=== PATIENT | female | born 1955 | race Caucasian/White ===

== ENCOUNTER 2017-07-03 11:43 | Day surgery (SDC) | payer BC ==
[~2017-07-03] VITALS: Ht 154.9 cm; Wt 55.0 kg
[2017-07-03] VITALS (14 sets, daily range): BP systolic 126–193; BP diastolic 59–89; PULSE 66–78; RESP 13–21; Ht 154.9 cm; Wt 55.0 kg
[~2017-07-03 11:43] MED LIST: ATOR10TA65 PO; DESFLURANE 15 MIN ONE; LANT3I SC; LIDOCAINE 2% (SDV) 5 ML INJ ONE; LISI40TA9 PO; METF-480 PO; METF1000 PO; NOVO3I SC
[2017-07-03] MEDS ORDERED: METF1000 PO (12:24)
[2017-07-03] MEDS ORDERED: GLIP5TAB13 PO (12:25)
[2017-07-03] MEDS ORDERED: SIMV20TA PO (12:25)
[2017-07-03] MEDS ORDERED: CALC1TAB79 PO (12:26)
[2017-07-03] MEDS ORDERED: LISI-313 PO (12:27)
[2017-07-03] MEDS ORDERED: ASPI-664 PO (12:29)
[2017-07-03] MEDS ORDERED: SOD CHLORIDE 0.9% 1,000 ML IV SCH (12:30)
[2017-07-03] MEDS ORDERED: CEFAZOLIN 2 GM/50 ML (PMX) 50 ML IVPB ONE (12:30)
[2017-07-03 13:21] LABS: BASOPHILS % 0.2 % (0.0-2.0); EOSINOPHILS % 0.3 % (0.0-7.0); HEMATOCRIT 32.2 % (37.0-47.0); HEMOGLOBIN 10.9 g/dl (12.0-16.0); LYMPHOCYTES # 1.9 10^3/ul (0.8-2.9); LYMPHOCYTES % 17.6 % (15.0-51.0); MEAN CORPUSCULAR HEMOGLOBIN 30.4 pg (29.0-33.0); MEAN CORPUSCULAR HGB CONC 33.9 g/dl (32.0-37.0); MEAN CORPUSCULAR VOLUME 89.9 fl (82.0-101.0); MEAN PLATELET VOLUME 10.5 fl (7.4-10.4); MONOCYTE # 0.8 10^3/ul (0.3-0.9); MONOCYTES % 7.1 % (0.0-11.0); NEUTROPHILS % 74.4 % (39.0-77.0); PLATELET COUNT 321 10^3/UL (140-415); RED BLOOD COUNT 3.58 10^6/ul (4.20-5.40); RED CELL DISTRIBUTION WIDTH 12.7 % (11.5-14.5); WHITE BLOOD COUNT 10.9 10^3/ul (4.8-10.8)
[2017-07-03] MEDS ORDERED: INSULIN ASPART [NOVOLOG] 3 ML PEN SC SCH (13:30)
[2017-07-03 13:33] LABS: INR 1.01; PROTIME 13.3 Sec (12.2-14.2)
[2017-07-03 13:34] LABS: PARTIAL THROMBOPLASTIN TIME 25.3 Sec (25.0-35.0)
--- NOTE | 2017-07-03 13:38 | RADRPT ---
PROCEDURE: XR Chest 1 View. CLINICAL INDICATION: Abnormal breath sounds, preop. TECHNIQUE: AP view of the chest was obtained. COMPARISON: December 23, [address] December 28 2014 FINDINGS: The cardiomediastinal silhouette is within normal limits. No consolidations are identified. No pneu mothorax is seen. Osseous structures are intact. IMPRESSION: No visualized active disease. RPTAT: AA .Polo Alan MD, Date Time Electronically viewed and signed by .Polo Alan MD, MD on 07/03/2017 13:38 .P/
[2017-07-03 13:42] LABS: BILIRUBIN,INDIRECT 0.5 mg/dl (0-1.1); BILIRUBIN,TOTAL 0.5 mg/dl (0.2-1.3); CALCIUM 9.5 mg/dl (8.4-10.2); CREATININE 0.63 mg/dl (0.44-1.00); POTASSIUM 3.6 mmol/L (3.5-5.1); TOTAL PROTEIN 8.1 g/dl (6.1-8.1)
[2017-07-03 13:55] LABS: ALBUMIN 4.2 g/dl (3.3-4.9); ALBUMIN/GLOBULIN RATIO 1.07
[2017-07-03] MEDS ORDERED: BUPIVACAINE 0.25% (MPF) 30 ML INJ ONE ×2 (14:37→14:45)
[2017-07-03] MEDS ORDERED: ONDANSETRON 4 MG INJ ONE (14:44)
[2017-07-03] MEDS ORDERED: PROPOFOL 20 ML ONE (14:44)
[2017-07-03] MEDS ORDERED: GLYCOPYRROLATE 0.4 MG INJ ONE (14:44)
[2017-07-03] MEDS ORDERED: ROCURONIUM 50 MG INJ ONE (14:44)
[2017-07-03] MEDS ORDERED: MIDAZOLAM 1 MG/ML 2 ML INJ ONE (14:44)
[2017-07-03] MEDS ORDERED: FENTAnyl 50 MCG/ML VIAL ONE (14:44)
[2017-07-03] MEDS ORDERED: CEFAZOLIN 1 GM INJ ONE (14:44)
[2017-07-03] MEDS ORDERED: NEOSTIGMINE 3 MG/3 ML SYRINGE ONE (14:44)
[2017-07-03] MEDS ORDERED: DEXAMETHASONE 4 MG/ML 1 ML INJ ONE (14:45)
[2017-07-03] MEDS ORDERED: PHENYLephrine (100 MCG/ML) 5ML SYG ONE (14:59)
--- NOTE | 2017-07-03 15:29 | OPR ---
Date/Time of Note Date/Time of Note DATE: 07/03/17 TIME: 15:26 Operative Report Procedure Date: Jul 03, 2017 Preoperative Diagnosis left back mass Postoperative Diagnosis same Operation Performed 1. excision of back mass 10 x 6 cm mass 10 cm incision 2. localized adjacent tissue transfer with the use of skin flaps 60 sq cm defect 3. therapeutic injection of subcutaneous marcaine Surgeon: Chente MENESES Anesthesia Type: general Estimated Blood Loss: 0 - 10 ml's Specimens left back mass Grafts/Implants: none Complications: no Indications This is a 61-year-old female with a large left back mass. She required surgical excision. Risks alternatives benefits and percent were discussed the patient. Patient's best understanding and consents to the operation. Procedure Description Patient taken to the OR and prepped and draped in usual sterile fashion. Surgical timeout was performed. IV antibiotics were given. Large elliptical incision is made with a 15 blade circumferentially around the left back mass. Dissection cautery was carried onto the deeper tissue layers. The mass is resected and blocked. A large tissue defect is created. Localized adjacent tissue transfer with these of skin flaps was performed. Large skin flaps are created in the lateral aspect of the wound. These are raised and advanced to the midline and closed with interrupted 2-0 Vicryl and interrupted 3-0 Vicryl. The skin is then closed with skin dayanara. The therapeutic subcutaneous Marcaine is injected all along the incision line. Dry dressings were applied. Chente MENESES Jul 03, 2017 15:29
[2017-07-03] MEDS ORDERED: HYDROCODONE/APAP (5/325) TAB PO ONE (15:30)
[2017-07-03] MEDS ORDERED: EPHEDrine SULFATE 50 MG/5 ML SYG IV PRN (15:30)
[2017-07-03] MEDS ORDERED: MEPERIDINE 25 MG INJ IV PRN (15:30)
[2017-07-03] MEDS ORDERED: HYDROmorphONE (0.2 MG/ML) 10ML SYG IV PRN ×3 (15:30)
[2017-07-03] MEDS ORDERED: hydrALAzine 20 MG INJ IV PRN (15:30)
[2017-07-03] MEDS ORDERED: OXYCODONE/ACETAMINOPHEN (5/325) TAB PO PRN ×2 (15:30)
[2017-07-03] MEDS ORDERED: IPRATROPIUM (NEB) 0.5 MG/2.5 ML AMP HHN PRN (15:30)
[2017-07-03] MEDS ORDERED: DIPHENHYDRAMINE 50 MG INJ IV PRN (15:30)
[2017-07-03] MEDS ORDERED: FENTAnyl 50 MCG/ML VIAL IV PRN ×3 (15:30)
[2017-07-03] MEDS ORDERED: ALBUTEROL 0.083% (NEB) 2.5 MG/3 ML AMP HHN PRN (15:30)
[2017-07-03] MEDS ORDERED: TRIMETHOBENZAMIDE 100 MG/ML VIAL IM PRN (15:30)
[2017-07-03] MEDS ORDERED: ONDANSETRON 4 MG INJ IV PRN (15:30)
[2017-07-03] MEDS ORDERED: LABETALOL HCL 20MG INJ IV PRN (15:30)
[2017-07-03] MEDS ORDERED: MIDAZOLAM 1 MG/ML 2 ML INJ IV PRN (15:30)
[2017-07-03] MEDS ORDERED: DEXTROSE 50% 50 ML SYRINGE IV PRN (16:00)
--- NOTE | 2017-07-05 17:09 | RADRPT ---
Vent Rate: 67 bpm RR Interval: 0 msec NV Interval: 140 msec QRS Duration: 76 msec QT Interval: 416 msec QTC Interval: 439 msec P-R-T [place]: 42 - 20 - 146 degrees Normal sinus rhythm Nonspecific T wave abnormality Abnormal ECG Electronically Signed By: Basil George [id number]
== END 2017-07-03 18:23 | disposition home or self-care (01) ==
LOC: SDS 11:43
PROVIDERS: ATTEND Surgery
DX: L72.0 Epidermal cyst (principal); L90.5 Scar conditions and fibrosis of skin; E11.9 Type 2 diabetes mellitus without complications; I10 Essential (primary) hypertension
CPT/HCPCS: 14301; 71010; 80053; 82962; 85025; 85610; 85730; 88307; 93005; J0360; J0690; J1100; J1815; J2250; J2370; J2405; J2710; J3010; Z7512; Z7610

== ENCOUNTER 2017-08-21 07:34 | Day surgery (SDC) | payer BC ==
[2017-08-21] VITALS (9 sets, daily range): BP systolic 132–162; BP diastolic 59–82; PULSE 64–72; RESP 15–22; Ht 154.9 cm; Wt 57.4 kg
[~2017-08-21] VITALS: Ht 154.9 cm; Wt 57.4 kg
[~2017-08-21 07:34] MED LIST changes: +ASPI-664 PO; -ATOR10TA65 PO; +CALC1TAB79 PO; +CARBACHOL 0.01% 1.5 ML OPH INJ ONE; -DESFLURANE 15 MIN ONE; +EPINEPHrine 1 MG INJ ONE; +GLIP5TAB13 PO; -LANT3I SC; +LIDOCAINE 1% (MPF) 10 ML INJ ONE; +LISI-313 PO; -LISI40TA9 PO; -METF-480 PO; -NOVO3I SC; +PHENYLephrine 10% 5 ML OPH ONE; +SIMV20TA PO; +TIMOLOL 0.5% 5 ML OPH ONE
[2017-08-21] MEDS ORDERED: PHENYLephrine 10% 5 ML OPH OPER SCH (08:00)
[2017-08-21] MEDS ORDERED: NEPAFENAC 0.1% 3 ML OPH OPER SCH (08:00)
[2017-08-21] MEDS ORDERED: CYCLOPENTOLATE 2% 2 ML OPH OPER SCH (08:00)
[2017-08-21] MEDS ORDERED: MOXIFLOXACIN 0.5% 3 ML OPH OPER SCH (08:00)
[2017-08-21] MEDS ORDERED: NA BICARBONATE 8.4% 50 ML SYG ONE (09:00)
[2017-08-21] MEDS ORDERED: SODIUM BICARBONATE (IV ADD) 50 ML ONE (09:01)
[2017-08-21] MEDS ORDERED: LIDOCAINE 1% (MPF) 5 ML VIAL INJ ONE (09:15)
[2017-08-21] MEDS ORDERED: PHENYLephrine 10% 5 ML OPH OPER ONE (09:15)
[2017-08-21] MEDS ORDERED: TETRACAINE 0.5% 4 ML OPH LEFT EYE ONE (09:15)
--- NOTE | 2017-08-21 09:33 | HPN ---
Date/Time of Note Date/Time of Note DATE: 08/21/17 TIME: 09:32 Interval H&P Admission Note Pt. seen H&P reviewed: No system changes FRANCES MONTOYA MD Aug 21, 2017 09:33
[2017-08-21] MEDS ORDERED: CARBACHOL 0.01% 1.5 ML OPH INJ IO ONE (10:05)
[2017-08-21] MEDS ORDERED: TIMOLOL 0.5% 5 ML OPH LEFT EYE ONE (10:05)
[2017-08-21] MEDS ORDERED: LIDOCAINE 2% (SDV) 5 ML INJ ONE (10:07)
[2017-08-21] MEDS ORDERED: PROPOFOL 20 ML ONE (10:07)
--- NOTE | 2017-08-21 10:22 | SIPON ---
Date/Time of Note Date/Time of Note DATE: 08/21/17 TIME: 10:19 Operative Report Preoperative Diagnosis cataract left eye Postoperative Diagnosis same Operation/Procedure Performed cataract extraction with lens implant Surgeon see signature line triage assistant none Anesthesia: MAC Estimated blood loss: none Transfusion Required none Specimen none Grafts/Implants none Complications none FRANCES MONTOYA MD Aug 21, 2017 10:22
[2017-08-21] MEDS ORDERED: FENTAnyl 50 MCG/ML VIAL IV PRN ×3 (10:30)
[2017-08-21] MEDS ORDERED: hydrALAzine 20 MG INJ IV PRN (10:30)
[2017-08-21] MEDS ORDERED: EPHEDrine SULFATE 50 MG/5 ML SYG IV PRN (10:30)
[2017-08-21] MEDS ORDERED: LABETALOL HCL 20MG INJ IV PRN (10:30)
[2017-08-21] MEDS ORDERED: KETOROLAC 30 MG INJ IV PRN (10:30)
[2017-08-21] MEDS ORDERED: ONDANSETRON 4 MG INJ IV PRN (10:30)
[2017-08-21] MEDS ORDERED: OXYCODONE/ACETAMINOPHEN (5/325) TAB PO PRN ×2 (10:30)
--- NOTE | 2017-08-27 07:54 | OPR ---
DATE OF OPERATION: 08/21/2017 SURGEON: Frances Quigley MD HYDRAULIC LIFT OPERATOR: None. ANESTHESIOLOGIST: PREOPERATIVE DIAGNOSIS: Senile nuclear sclerotic cataract, left eye. POSTOPERATIVE DIAGNOSIS: Senile nuclear sclerotic cataract, left eye. OPERATION: Kelman phacoemulsification with implantation of intraocular lens, left eye. PROCEDURE: Following standard preparation and draping of the patient, an aspirating lid speculum wa s placed for immobilization of the lids. A Superblade incision was made for access into the anterior chamber. Approximately 0.5 ml of 1% unpreserved Xylocaine was instilled into the anterior chamber, and after approximately 15 seconds, this was replaced with Viscoat. A clear corneal incision was then made using the 3.2 mm keratome, following which an anterior circul ar capsulorrhexis was made. The major portion of the lens cortex and nucleus was then dislocated fro m the capsular bag using hydrodissection. The KPE tip was introduced into the eye, and controlling m ovements of the lens with a two-handed technique, the major portion of the lens cortex and nucleus w as removed, maintaining the lens in the plane of the iris. The remaining cortical material was remov ed via the irrigating-aspirating instrument. The capsular bag and the anterior chamber were re-forme d using Viscoat. The proper power lens was then placed within the capsular bag. The viscoelastic was then removed from the eye and the eye re-formed with balanced salt solution. One 10-0 Vicryl suture was then used to ensure closure of the corneal incision. The eye was re-forme d to normal pressure using balanced salt solution. The eye and cul-de-sacs were now simply flooded w ith 5% Betadine solution. One drop of Vigamox and one drop of Betagan solution were instilled into the eye. A light pressure d ressing was applied, and the patient was returned to the recovery room in satisfactory condition. Dictated By: FRANCES JAY/VIVIANA Conf#: [id number] DID#: [id number]
== END 2017-08-21 11:40 | disposition home or self-care (01) ==
LOC: SDS 07:34
PROVIDERS: ATTEND Ophthalmology
DX: H25.12 Age-related nuclear cataract, left eye (principal); I10 Essential (primary) hypertension; E11.9 Type 2 diabetes mellitus without complications
CPT/HCPCS: 66984; 82962; J0171; V2632; Z7512; Z7610

== ENCOUNTER 2019-01-22 17:11 | Inpatient (IN) | payer BC ==
[~2019-01-22] VITALS: Ht 160 cm; Wt 60.5 kg
[~2019-01-22 17:11] MED LIST changes: -ASPI-664 PO; +ASPI81TA52 PO; -CARBACHOL 0.01% 1.5 ML OPH INJ ONE; -EPINEPHrine 1 MG INJ ONE; -LIDOCAINE 1% (MPF) 10 ML INJ ONE; -LIDOCAINE 2% (SDV) 5 ML INJ ONE; -METF1000 PO; +METF100010 PO; -PHENYLephrine 10% 5 ML OPH ONE; -TIMOLOL 0.5% 5 ML OPH ONE
[2019-01-22 17:37] VITALS: Ht 160 cm; Wt 60.5 kg
[2019-01-22] MEDS ORDERED: LACTATED RINGER'S 1,000 ML IV STA (20:32)
[2019-01-22] MEDS ORDERED: ONDANSETRON 4 MG INJ IV STA (20:32)
--- NOTE | 2019-01-22 21:05 | ERD ---
ER Documentation Chief Complaint Chief Complaint vomiting, diarrhea, cough, hematuria and right lower abdomen abscess x 1 mo HPI 63-year-old female history of diabetes, hypertension, hyperlipidemia presents to the ED complaining of a 2-day history of generalized, crampy, mild, now rating abdominal pain with nausea and multiple episodes of nonbloody, non-bilious emesis and nonbloody, nonmucoid loose stools. Denies ill contacts, recent travel or spelled food exposure. No relieving or exacerbating factors. Denies chest pain, palpitations or shortness of breath. Patient is also had a swelling on her right lower abdomen for over 5 months. No fevers or chills. ROS All systems reviewed and are negative except as per history of present illness. Medications Home Meds Reported Medications Simvastatin* (Zocor*) 20 Mg Tablet, 20 MG PO QHS, #30 TAB 01/22/19 Aspirin* (Aspirin* EC) 81 Mg Tablet.dr, 81 MG PO DAILY, TAB 01/22/19 Calcium Carbonate-Vitamin D3 (Calcium 600 + Vit D3) 1 Each Tablet, 1 TAB PO BID, TAB 01/22/19 Lisinopril* (Lisinopril*) 5 Mg Tablet, 5 MG PO DAILY, #30 TAB 01/22/19 Metformin Hcl* (Metformin Hcl*) 1,000 Mg Tablet, 1000 MG PO WITH BREAKFAST DINNE, #60 TAB 01/22/19 Glipizide* (Glipizide*) 5 Mg Tablet, 5 MG PO AC BREAKFAST DINNER, TAB 01/22/19 Discontinued Reported Medications Aspirin (Low Dose Aspirin) 81 Mg Tablet.dr, 81 MG PO DAILY, #30 TAB 07/03/17 Lisinopril* (Lisinopril*) 5 Mg Tablet, 5 MG PO DAILY, #30 TAB 07/03/17 Calcium Carbonate/Vitamin D3 ([place] 500+D Tablet) 1 Each Tablet, 1 EACH PO BID, TAB 07/03/17 Simvastatin* (Zocor*) 20 Mg Tablet, 20 MG PO QHS, #30 TAB 07/03/17 Glipizide* (Glipizide*) 5 Mg Tablet, 5 MG PO BID, TAB 07/03/17 Metformin Hcl* (Metformin Hcl*) 1,000 Mg Tablet, 1000 MG PO WITH BREAKFAST DINNE, #30 TAB 07/03/17 Allergies Allergies: Coded Allergies: No Known Allergies (Verified Allergy, Unknown, 01/22/19) PMhx/Soc Reviewed in chart. As per HPI. History of Surgery: Yes (EXCISION OF LIPOMA BACK, PARTIAL HYSTERECTOMY) Anesthesia Reaction: No Hx Neurological Disorder: No Hx Respiratory Disorders: No Hx Cardiac Disorders: Yes (HTN, HLD) Hx Psychiatric Problems: No Hx Miscellaneous Medical Probl: Yes (DM) Hx Alcohol Use: No Hx Substance Use: No Hx Tobacco Use: No Smoking Status: Never smoker FmHx No family history relevant to presenting complaint Physical Exam Vitals Vital Signs Date Temp Pulse Resp B/P (MAP) Pulse Ox O2 O2 Flow FiO2 Time Delivery Rate 01/22/19 89 20 152/83 96 Room Air 22:00 (106) 01/22/19 84 17 178/71 98 Room Air 20:10 (106) 01/22/19 101.3 84 18 189/84 94 17:37 (119) Physical Exam Const: Anxious, no acute distress Head: Atraumatic Eyes: Normal Conjunctiva ENT: Normal External Ears, Nose and Mouth. Neck: Full range of motion. No meningismus. Resp: Clear to auscultation bilaterally Cardio: Regular rate and rhythm, no murmurs Abd: Soft, non tender, non distended. No rebound or guarding. Normal bowel sounds. Right lower quadrant, 2 cm superficial fluid collection but no erythema, induration or tenderness. No discharge. Skin: No petechiae or rashes Back: No midline or flank tenderness Ext: No cyanosis, or edema Neur: Awake and alert. No focal deficit. Psych: Normal Mood and Affect Result Diagram: 01/25/19 0551 01/25/19 0551 Results 24 hrs Laboratory Tests Test 01/22/19 20:55 01/22/19 21:04 01/22/19 21:59 White Blood Count 23.7 10^3/ul Red Blood Count 3.58 10^6/ul Hemoglobin 10.7 g/dl Hematocrit 32.3 % Mean Corpuscular Volume 90.2 fl Mean Corpuscular Hemoglobin 29.9 pg Mean Corpuscular 33.1 g/dl Hemoglobin Concent Red Cell Distribution Width 12.6 % Platelet Count 189 10^3/UL Mean Platelet Volume 10.3 fl Immature Granulocytes % 2.600 % Neutrophils % % Segmented Neutrophils % (Manual) 69 % Band Neutrophils % (Manual) 17 % Lymphocytes % % Lymphocytes % (Manual) 3 % Reactive Lymphocytes % (Manual) 4 % Monocytes % % Monocytes % (Manual) 7 % Eosinophils % % Basophils % % Nucleated Red Blood Cells % 0.0 /100WBC Immature Granulocytes # 0.620 10^3/ul Neutrophils # 10^3/ul Neutrophils # (Manual) 17.3 10^3/ul Band Neutrophils # 4.0 10^3/ul Lymphocytes (Manual) 0.7 10^3/ul Lymphocytes # 10^3/ul Reactive Lymphocytes # 0.9 10^3/ul Monocytes # 10^3/ul Monocytes # (Manual) 1.6 10^3/ul Eosinophils # 10^3/ul Basophils # 10^3/ul Nucleated Red Blood Cells # 10^3/ul Platelet Estimate NORMAL Anisocytosis 1+ Microcytosis 1+ Prothrombin Time 14.1 Sec Prothrombin Time Ratio 1.1 INR International 1.08 Normalized Ratio Activated Partial Thromboplast 30.6 Sec Time Sodium Level 134 mmol/L Potassium Level 4.2 mmol/L Chloride Level 97 mmol/L Carbon Dioxide Level 25 mmol/L Anion Gap 12 Blood Urea Nitrogen 24 mg/dl Creatinine 0.85 mg/dl Est Glomerular Filtrat > 60 mL/min Rate mL/min Glucose Level 232 mg/dl Calcium Level 9.4 mg/dl Total Bilirubin 0.6 mg/dl Direct Bilirubin 0.00 mg/dl Indirect Bilirubin 0.6 mg/dl Aspartate Amino 20 IU/L Transf (AST/SGOT) Alanine 20 IU/L Aminotransferase (ALT/SGPT) Alkaline Phosphatase 84 IU/L Troponin I < 0.012 ng/ml Total Protein 7.6 g/dl Albumin 4.0 g/dl Globulin 3.60 g/dl Albumin/Globulin Ratio 1.11 Lipase 28 U/L Urine Color YELLOW Urine Clarity CLOUDY Urine pH 6.0 Urine Specific [place] 1.012 Urine Ketones 1+ mg/dL Urine Nitrite POSITIVE mg/dL Urine Bilirubin NEGATIVE mg/dL Urine Urobilinogen NEGATIVE mg/dL Urine Leukocyte Esterase 1+ Eda/ul Urine Microscopic RBC 12 /HPF Urine Microscopic WBC 55 /HPF Urine Squamous Epithelial Cells FEW /HPF Urine Bacteria MANY /HPF Urine Hemoglobin 2+ mg/dL Urine Glucose 3+ mg/dL Urine Total Protein 2+ mg/dl POC Venous Lactate 1.8 mmol/L Current Medications Medications Dose Sig/[place]mond Start Time Status Last (Trade) Ordered Route PRN Stop Time Admin Dose Reason Admin Lactated 1,000 ml @ Q1H STAT 01/22/19 DC 01/22/19 Ringer's 1,000 mls/hr IV 20:32 21:08 01/22/19 21:31 Ondansetron 4 mg ONCE STAT 01/22/19 DC 01/22/19 HCl (Zofran IV 20:32 21:09 Inj) 01/22/19 20:34 Sodium 1,930 ml BOLUS OVER 2 01/22/19 DC 01/22/19 Chloride HOURS STAT 21:44 22:03 (NS) IV* 01/22/19 21:47 Ceftriaxone 50 ml @ ONCE STAT 01/22/19 DC 01/22/19 Sodium 100 mls/hr IVPB 21:44 22:02 01/22/19 22:13 Procedures/MDM DOCUMENTS REVIEWED: ED nurse, prior records EKG: Time: 22:18. Sinus rhythm. Ventricular rate 77. Normal NM and QRS. Nonspecific ST-T wave changes. No acute ST segment elevation or depression. No ectopy. My Interpretation IMAGING: Chest AP portable. Cardiomegaly. The costophrenic angles are clear. No effusions or infiltrates. No mediastinal widening or abnormality of the bony thorax. My interpretation. MEDICAL DECISION MAKIN-year-old female history of diabetes, hypertension, hyperlipidemia presents to the ED complaining of a 2-day history of generalized, crampy, mild, now rating abdominal pain with nausea and multiple episodes of nonbloody, non-bilious emesis and nonbloody, non-mucoid loose stools. CBC significant for leukocytosis with left shift stable and anemia but no thrombocytopenia. Chemistry reveals hyperglycemia but no anion gap acidosis, elevated BUN with normal creatinine and no other electrolyte abnormalities. Urinalysis reveals pyuria, positive nitrate and many bacteria consistent with urinary tract infection consistent with dehydration. EKG unremarkable for ischemic changes or dysrhythmia. Troponin is negative. Patient with multiple criteria for systemic inflammatory response syndrome cleaning fever and leukocytosis. Sepsis with infectious source urinary tract infection. Lactate is less than 2 mmol/L. No hypotension or criteria for severe sepsis or septic shock. 30cc/kg. IV fluids and antibiotics after cultures. Hyperglycemia without evidence of DKA or HHS. Abdominal exam is completely benign without significant tenderness, rebound, guarding or signs of peritonitis and advanced imaging is deferred. Small area of swelling in the right lower quadrant but no fluctuance, erythema or induration however a subcutaneous fluid collection/abscess is not completely ruled out. Patient's infectious symptoms have not stabilized and the patient is at risk of rapid decompensation. The patient will be admitted to med/surg for careful hydration, antibiotic therapy, and infectious source control. Critical Care Time: 35 minutes Treatments/Evaluations: Close monitoring and treatment of unstable vital signs, cardiorespiratory, and neurologic status, while maintaining tight balance of fluid, respiratory, and cardiac interventions. This includes the administration of emergency fluid management while maintaining close respiratory support as well as the provision of immediate and broad-spectrum antibiotic therapy, while performing a simultaneous assessment for possible sources in order to direct targeted therapy. This time includes discussing the case with the patient and the patient's family. This time also includes the consideration for invasive and chemical support to prevent cardiopulmonary collapse. This time does not include all procedures stated elsewhere in this record. This time also includes reviewing old records, labs and radiological studies. This time includes e xamining and re-examining the patient. Additionally, this time also includes arranging care with admitting and consulting physicians. CARE TRANSFERRED: Time: 23:55. Dr Huerta Departure Diagnosis: Primary Impression: Nausea and vomiting Vomiting type: unspecified Vomiting Intractability: non-intractable Qualified Codes: R11.2 - Nausea with vomiting, unspecified Additional Impressions: Sepsis Sepsis type: sepsis due to unspecified organism Qualified Codes: A41.9 - Sepsis, unspecified organism Systemic inflammatory response syndrome Urinary tract infection Urinary tract infection type: site unspecified Hematuria presence: without hematuria Qualified Codes: N39.0 - Urinary tract infection, site not specified Diabetes mellitus out of control Diabetes mellitus type: type 2 Glycemic state: with hyperglycemia Qualified Codes: E11.65 - Type 2 diabetes mellitus with hyperglycemia Condition: Serious MARS PAZ MD Jan 22, 2019 21:05
[2019-01-22] MEDS ORDERED: METF100010 PO (21:44)
[2019-01-22] MEDS ORDERED: SODIUM CHLORIDE 0.9% 1L BAG IV* STA (21:44)
[2019-01-22] MEDS ORDERED: LISI-313 PO (21:44)
[2019-01-22] MEDS ORDERED: CEFTRIAXONE 1 GM/50 ML (PMX) 50 ML IVPB STA (21:44)
[2019-01-22] MEDS ORDERED: GLIP5TAB13 PO (21:44)
[2019-01-22] MEDS ORDERED: CALC1TAB PO (21:45)
[2019-01-22] MEDS ORDERED: ASPI-817 PO (21:45)
[2019-01-22] MEDS ORDERED: SIMV20TA PO (21:45)
[2019-01-23] MEDS ORDERED: ONDANSETRON 4 MG INJ IV PRN
[2019-01-23] MEDS ORDERED: NACL 0.9% 3 ML SYG IV SCH (00:30)
[2019-01-23] MEDS ORDERED: ACETAMINOPHEN 325 MG TAB PO PRN ×2 (00:30)
[2019-01-23] MEDS ORDERED: ALBUTEROL/IPRATROPIUM (NEB) 3 ML AMP HHN PRN (00:30)
[2019-01-23] MEDS ORDERED: hydrALAzine 20 MG INJ IV ONE (02:00)
[2019-01-23 03:30] VITALS: BP 155/70; PULSE 90; RESP 18
[2019-01-23] MEDS: SOD CHLORIDE 0.9% 1,000 ML IV SCH ×2 (04:07→14:50)
--- NOTE | 2019-01-23 06:27 | HP ---
Date/Time of Note Date/Time of Note DATE: 01/23/19 TIME: 06:24 Assessment/Plan VTE Prophylaxis Pharmacological prophylaxis: heparin Lines/Catheters IV Catheter Type (from Nrs): Peripheral IV Urinary Cath still in place: No Assessment/Plan Assessment/Plan 1. Sepsis, as evidenced by fever and leukocytosis: Secondary to UTI -IV antibiotic, IV fluid -Follow-up culture results 2. Hypertensive urgency: BP better controlled 3. Type 2 diabetes: Insulin while in-house 4. Dyslipidemia: Continue statin Result Diagram: 01/23/1952301/22/192054 Results 24hrs Laboratory Tests Test 01/22/19 20:55 01/22/19 21:04 01/22/19 21:59 01/23/19 05:24 White Blood Count 23.7 #H 22.7 H Red Blood Count 3.58 L 3.28 L Hemoglobin 10.7 L 10.1 L Hematocrit 32.3 L 30.5 L Mean Corpuscular 90.2 93.0 Volume Mean Corpuscular 29.9 30.8 Hemoglobin Mean Corpuscular 33.1 33.1 Hemoglobin Concent Red Cell 12.6 12.9 Distribution Width Platelet Count 189 # 168 Mean Platelet Volume 10.3 11.1 H Immature 2.600 H 2.400 H Granulocytes % Neutrophils % 87.4 H Segmented 69 Neutrophils % (Manual) Band Neutrophils % 17 H (Manual) Lymphocytes % 6.0 L Lymphocytes % 3 L (Manual) Reactive Lymphocytes 4 H % (Manual) Monocytes % 4.0 Monocytes % (Manual) 7 Eosinophils % 0.0 Basophils % 0.2 Nucleated Red Blood 0.0 0.0 Cells % Immature 0.620 H 0.550 H Granulocytes # Neutrophils # 19.8 H Neutrophils # 17.3 H (Manual) Band Neutrophils # 4.0 H Lymphocytes (Manual) 0.7 L Lymphocytes # 1.4 Reactive Lymphocytes 0.9 H # Monocytes # 0.9 Monocytes # (Manual) 1.6 H Eosinophils # 0.0 Basophils # 0.1 Nucleated Red Blood 0.0 Cells # Platelet Estimate NORMAL Anisocytosis 1+ Microcytosis 1+ Prothrombin Time 14.1 Prothrombin Time 1.1 Ratio INR International 1.08 Normalized Ratio Activated 30.6 Partial Thromboplast Time Sodium Level 134 L Potassium Level 4.2 Chloride Level 97 Carbon Dioxide Level 25 Anion Gap 12 Blood Urea Nitrogen 24 H Creatinine 0.85 Est Glomerular > 60 Filtrat Rate mL/min Glucose Level 232 H Calcium Level 9.4 Total Bilirubin 0.6 Direct Bilirubin 0.00 Indirect Bilirubin 0.6 Aspartate Amino 20 Transf (AST/SGOT) Alanine 20 Aminotransferase (AL T/SGPT) Alkaline Phosphatase 84 Troponin I < 0.012 Total Protein 7.6 Albumin 4.0 Globulin 3.60 H Albumin/Globulin 1.11 Ratio Lipase 28 Urine Color YELLOW Urine Clarity CLOUDY A Urine pH 6.0 Urine Specific 1.012 [place] Urine Ketones 1+ H Urine Nitrite POSITIVE A Urine Bilirubin NEGATIVE Urine Urobilinogen NEGATIVE Urine Leukocyte 1+ H Esterase Urine Microscopic 12 H RBC Urine Microscopic 55 H WBC Urine Squamous FEW Epithelial Cells Urine Bacteria MANY A Urine Hemoglobin 2+ H Urine Glucose 3+ H Urine Total Protein 2+ H POC Venous Lactate 1.8 HPI/ROS Admit Date/Time Admit Date/Time Jan 22, 2019 at 23:58 Hx of Present Illness This is a 63-year-old female with a history of hypertension, diabetes, dyslipidemia, large left upper back abscess status post I&D in 2014. Patient presents the ER complaining of abdominal pain, nausea/vomiting and diarrhea. Abdominal pain is mostly left-sided. Diarrhea is not bloody. Emesis described as nonbilious and nonbloody. Mom presents the ER, she was febrile temperature of 101.8. WBC 24,000. UA consistent with UTI. PMH/Family/Social Past Medical History Past Surgical History Past Surgical Hx: other (see hpi) Family History Significant Family History: no pertinent family hx Social History Alcohol Use: other Smoking Status: Unknown if ever smoked Drug Use: other Exam Constitutional: other (no acute distress) Eyes: PERRL ENMT: nl external ears & nose Neck: supple Respiratory: normal air movement Cardiovascular: nl pulses Gastrointestinal: soft Extremities: normal pulses Medications Current Medications Ondansetron HCl (Zofran Inj) 4 mg BRIDGE ORDER PRN IV NAUSEA/VOMITING; Start 01/23/19 at 00:00; Stop 01/23/19 at 23:59 Acetaminophen (Tylenol Tab) 650 mg ER BRIDGE PRN PO .MILD PAIN 1-3 OR TEMP; Start 01/23/19 at 00:00; Stop 01/23/19 at 23:59 Sodium Chloride 1,000 ml @ 100 mls/hr Q10H IV Last administered on 01/23/19at 04:07; Admin Dose 100 MLS/HR; Start 01/23/19 at 00:04; Stop 01/24/19 at 23:00 IV Flush (NS 3 ml) 3 ml PER PROTOCOL IV ; Start 01/23/19 at 00:30 Ondansetron HCl (Zofran Inj) 4 mg Q6H PRN IV NAUSEA/VOMITING; Start 01/23/19 at 00:30 Acetaminophen (Tylenol Tab) 650 mg Q6H PRN PO .PAIN 1-3 OR TEMP; Start 01/23/19 at 00:30 Heparin Sodium (Porcine) (Heparin (5000 Units/1ml)) 5,000 unit Q12 SC ; Start 01/23/19 at 09:00 Albuterol/ Ipratropium (Duoneb) 3 ml Q2H RESP THERAPY PRN HHN SHORTNESS OF BREATH; Start 01/23/19 at 00:30 Aspirin (Halfprin) 81 mg DAILY PO ; Start 01/23/19 at 09:00 Lisinopril (Zestril) 5 mg DAILY PO ; Start 01/23/19 at 09:00 Metformin HCl (Glucophage) 1,000 mg WITH BREAKFAST DINNE PO ; Start 01/23/19 at 08:00 Ceftriaxone Sodium 50 ml @ 100 mls/hr DAILY IVPB ; Start 01/23/19 at 09:00 Atorvastatin Calcium (Lipitor) 10 mg DAILY@21 PO ; Start 01/23/19 at 21:00 Diagnostic Test (Pha) (Accu-Chek) 1 ea AC MEALS AND BEDTIME XX ; Start 01/23/19 at 07:00 Coded Allergies: No Known Allergies (Verified Allergy, Unknown, 01/22/19) Past Surgical History Past Surgical Hx: other Social History Smoking Status: Never smoker Exam/Review of Systems Vital Signs Vitals Vital Signs Date Temp Pulse Resp B/P (MAP) Pulse Ox O2 O2 Flow FiO2 Time Delivery Rate 01/23/19 98.3 84 18 129/66 96 Room Air 02:49 (87) RUBEN BARON MD Jan 23, 2019 06:27
[2019-01-23 07:25] VITALS: BP 178/86; PULSE 74; RESP 18
[2019-01-23] MEDS: ACCU-CHEK XX SCH ×4 (08:20→21:29)
[2019-01-23] MEDS: metFORMIN 500 MG TAB PO SCH ×2 (08:25→18:44)
[2019-01-23] MEDS: ASPIRIN (EC) 81 MG TAB PO SCH (08:25)
[2019-01-23] MEDS: HEPARIN 5,000 UNIT/1 ML VIAL SC SCH ×2 (08:28→21:17)
[2019-01-23] MEDS ORDERED: LISINOPRIL 5 MG TAB PO SCH (09:00)
[2019-01-23] MEDS: CEFTRIAXONE 1 GM/50 ML (PMX) 50 ML IVPB SCH (09:06)
[2019-01-23] MEDS: ONDANSETRON 4 MG INJ IV PRN (09:29)
[2019-01-23 09:56] VITALS: BP 166/72; PULSE 81
--- NOTE | 2019-01-23 13:50 | PN ---
Date/Time of Note Date/Time of Note DATE: 01/23/19 TIME: 13:46 Assessment/Plan VTE Prophylaxis Risk score (from [facility] [place] risk: 3 SCD applied (from [facility] [place]): Yes Pharmacological prophylaxis: heparin Lines/Catheters IV Catheter Type (from [facility]): Peripheral IV Urinary Cath still in place: No Assessment/Plan Assessment/Plan 1. UTI, on rocephin 2. Bacteremia, follow up with final culture 3. Sepsis, on antibiotics 4. HTN, increase lisinopril 5. DM, add ISS and glipizide 6. Dyslipidemia, on lipitor 7. DVT prophylaxis: heparin Result Diagram: 01/23/1952301/23/19523 Results 24hrs Laboratory Tests Test 01/22/19 20:55 01/22/19 21:04 01/22/19 21:59 01/23/19 05:24 White Blood Count 23.7 #H 22.7 H Red Blood Count 3.58 L 3.28 L Hemoglobin 10.7 L 10.1 L Hematocrit 32.3 L 30.5 L Mean Corpuscular 90.2 93.0 Volume Mean Corpuscular 29.9 30.8 Hemoglobin Mean Corpuscular 33.1 33.1 Hemoglobin Concent Red Cell 12.6 12.9 Distribution Width Platelet Count 189 # 168 Mean Platelet Volume 10.3 11.1 H Immature 2.600 H 2.400 H Granulocytes % Neutrophils % 87.4 H Segmented 69 Neutrophils % (Manual) Band Neutrophils % 17 H (Manual) Lymphocytes % 6.0 L Lymphocytes % 3 L (Manual) Reactive Lymphocytes 4 H % (Manual) Monocytes % 4.0 Monocytes % (Manual) 7 Eosinophils % 0.0 Basophils % 0.2 Nucleated Red Blood 0.0 0.0 Cells % Immature 0.620 H 0.550 H Granulocytes # Neutrophils # 19.8 H Neutrophils # 17.3 H (Manual) Band Neutrophils # 4.0 H Lymphocytes (Manual) 0.7 L Lymphocytes # 1.4 Reactive Lymphocytes 0.9 H # Monocytes # 0.9 Monocytes # (Manual) 1.6 H Eosinophils # 0.0 Basophils # 0.1 Nucleated Red Blood 0.0 Cells # Platelet Estimate NORMAL Anisocytosis 1+ Microcytosis 1+ Prothrombin Time 14.1 Prothrombin Time 1.1 Ratio INR International 1.08 Normalized Ratio Activated 30.6 Partial Thromboplast Time Sodium Level 134 L 136 Potassium Level 4.2 4.0 Chloride Level 97 103 Carbon Dioxide Level 25 23 Anion Gap 12 10 Blood Urea Nitrogen 24 H 19 Creatinine 0.85 0.78 Est Glomerular > 60 > 60 Filtrat Rate mL/min Glucose Level 232 H 291 H Calcium Level 9.4 8.3 L Total Bilirubin 0.6 0.5 Direct Bilirubin 0.00 0.00 Indirect Bilirubin 0.6 0.5 Aspartate Amino 20 33 Transf (AST/SGOT) Alanine 20 27 Aminotransferase (AL T/SGPT) Alkaline Phosphatase 84 162 #H Troponin I < 0.012 Total Protein 7.6 6.8 Albumin 4.0 3.4 Globulin 3.60 H 3.40 H Albumin/Globulin 1.11 1.00 Ratio Lipase 28 Urine Color YELLOW Urine Clarity CLOUDY A Urine pH 6.0 Urine Specific 1.012 [place] Urine Ketones 1+ H Urine Nitrite POSITIVE A Urine Bilirubin NEGATIVE Urine Urobilinogen NEGATIVE Urine Leukocyte 1+ H Esterase Urine Microscopic 12 H RBC Urine Microscopic 55 H WBC Urine Squamous FEW Epithelial Cells Urine Bacteria MANY A Urine Hemoglobin 2+ H Urine Glucose 3+ H Urine Total Protein 2+ H POC Venous Lactate 1.8 Hemoglobin A1c 11.3 H Phosphorus Level 2.8 Magnesium Level 1.9 Triglycerides Level 125 Cholesterol Level 141 LDL Cholesterol, 77 Calculated HDL Cholesterol 39 Cholesterol/HDL 3.6 Ratio Test 01/23/19 08:19 01/23/19 12:25 Bedside Glucose 244 H 274 H Subjective 24 Hr Interval Summary Free Text/Dictation dysuria, lower abdominal pain Exam/Review of Systems Exam Vitals Vital Signs Date Temp Pulse Resp B/P (MAP) Pulse Ox O2 O2 Flow FiO2 Time Delivery Rate 01/23/19 81 166/72 09:56 (103) 01/23/19 98.2 18 97 07:25 01/23/19 Room Air 02:49 Constitutional: oriented, well developed, obese Psych: no complaints, nl mood/affect Head: normocephalic, atraumatic Eyes: nl conjunctiva, EOMI, nl lids, PERRL ENMT: nl external ears & nose, nl lips & teeth, nl nasal mucosa & septum Neck: supple, non-tender Respiratory: clear to auscultation, normal air movement; No congested cough, No crackles/rales, No diminished breath sounds, No intercostal retraction, No labored breathing, No respirations, No tactile fremitus, No wheezing, No other Cardiovascular: regular rate and rhythm, nl pulses; No bruits, No diastolic murmur, No edema, No gallop, No irregular rhythm, No jugular venous distention (JVD), No murmurs/extra sounds, No rub, No systolic murmur, No S3, No S4, No other Gastrointestinal: soft, nl liver, spleen, other (suprapubic tenderness) Musculoskeletal: nl extremities to inspection, nl gait and stance; No joint tenderness, No muscle tone, No muscle weakness, No range of motion, No spine non-tender, No swelling, No other Extremities: normal pulses; No calf tenderness, No cyanosis, No clubbing, No edema, No pitting pedal edema, No palpable cord, No tenderness, No other Neurological: SH[employer] II-XII intact, nl mental status, nl speech, nl strength Skin: nl turgor Results Results 24hrs Laboratory Tests Test 01/22/19 20:55 01/22/19 21:04 01/22/19 21:59 01/23/19 05:24 White Blood Count 23.7 #H 22.7 H Red Blood Count 3.58 L 3.28 L Hemoglobin 10.7 L 10.1 L Hematocrit 32.3 L 30.5 L Mean Corpuscular 90.2 93.0 Volume Mean Corpuscular 29.9 30.8 Hemoglobin Mean Corpuscular 33.1 33.1 Hemoglobin Concent Red Cell 12.6 12.9 Distribution Width Platelet Count 189 # 168 Mean Platelet Volume 10.3 11.1 H Immature 2.600 H 2.400 H Granulocytes % Neutrophils % 87.4 H Segmented 69 Neutrophils % (Manual) Band Neutrophils % 17 H (Manual) Lymphocytes % 6.0 L Lymphocytes % 3 L (Manual) Reactive Lymphocytes 4 H % (Manual) Monocytes % 4.0 Monocytes % (Manual) 7 Eosinophils % 0.0 Basophils % 0.2 Nucleated Red Blood 0.0 0.0 Cells % Immature 0.620 H 0.550 H Granulocytes # Neutrophils # 19.8 H Neutrophils # 17.3 H (Manual) Band Neutrophils # 4.0 H Lymphocytes (Manual) 0.7 L Lymphocytes # 1.4 Reactive Lymphocytes 0.9 H # Monocytes # 0.9 Monocytes # (Manual) 1.6 H Eosinophils # 0.0 Basophils # 0.1 Nucleated Red Blood 0.0 Cells # Platelet Estimate NORMAL Anisocytosis 1+ Microcytosis 1+ Prothrombin Time 14.1 Prothrombin Time 1.1 Ratio INR International 1.08 Normalized Ratio Activated 30.6 Partial Thromboplast Time Sodium Level 134 L 136 Potassium Level 4.2 4.0 Chloride Level 97 103 Carbon Dioxide Level 25 23 Anion Gap 12 10 Blood Urea Nitrogen 24 H 19 Creatinine 0.85 0.78 Est Glomerular > 60 > 60 Filtrat Rate mL/min Glucose Level 232 H 291 H Calcium Level 9.4 8.3 L Total Bilirubin 0.6 0.5 Direct Bilirubin 0.00 0.00 Indirect Bilirubin 0.6 0.5 Aspartate Amino 20 33 Transf (AST/SGOT) Alanine 20 27 Aminotransferase (AL T/SGPT) Alkaline Phosphatase 84 162 #H Troponin I < 0.012 Total Protein 7.6 6.8 Albumin 4.0 3.4 Globulin 3.60 H 3.40 H Albumin/Globulin 1.11 1.00 Ratio Lipase 28 Urine Color YELLOW Urine Clarity CLOUDY A Urine pH 6.0 Urine Specific 1.012 [place] Urine Ketones 1+ H Urine Nitrite POSITIVE A Urine Bilirubin NEGATIVE Urine Urobilinogen NEGATIVE Urine Leukocyte 1+ H Esterase Urine Microscopic 12 H RBC Urine Microscopic 55 H WBC Urine Squamous FEW Epithelial Cells Urine Bacteria MANY A Urine Hemoglobin 2+ H Urine Glucose 3+ H Urine Total Protein 2+ H POC Venous Lactate 1.8 Hemoglobin A1c 11.3 H Phosphorus Level 2.8 Magnesium Level 1.9 Triglycerides Level 125 Cholesterol Level 141 LDL Cholesterol, 77 Calculated HDL Cholesterol 39 Cholesterol/HDL 3.6 Ratio Test 01/23/19 08:19 01/23/19 12:25 Bedside Glucose 244 H 274 H Medications Medication Current Medications Sodium Chloride 1,000 ml @ 100 mls/hr Q10H IV Last administered on 01/23/19at 04:07; Admin Dose 100 MLS/HR; Start 01/23/19 at 00:04; Stop 01/24/19 at 23:00 IV Flush (NS 3 ml) 3 ml PER PROTOCOL IV ; Start 01/23/19 at 00:30 Ondansetron HCl (Zofran Inj) 4 mg Q6H PRN IV NAUSEA/VOMITING Last administered on 01/23/19at 09:29; Admin Dose 4 MG; Start 01/23/19 at 00:30 Acetaminophen (Tylenol Tab) 650 mg Q6H PRN PO .PAIN 1-3 OR TEMP; Start 01/23/19 at 00:30 Heparin Sodium (Porcine) (Heparin (5000 Units/1ml)) 5,000 unit Q12 SC Last administered on 01/23/19 08:28; Admin Dose 5,000 UNIT; Start 01/23/19 at 09:00 Albuterol/ Ipratropium (Duoneb) 3 ml Q2H RESP THERAPY PRN HHN SHORTNESS OF BREATH; Start 01/23/19 at 00:30 Aspirin (Halfprin) 81 mg DAILY PO Last administered on 01/23/19 08:25; Admin Dose 81 MG; Start 01/23/19 at 09:00 Lisinopril (Zestril) 5 mg DAILY PO Last administered on 01/23/19 08:25; Admin Dose 5 MG; Start 01/23/19 at 09:00 Metformin HCl (Glucophage) 1,000 mg WITH BREAKFAST DINNE PO Last administered on 01/23/19 08:25; Admin Dose 1,000 MG; Start 01/23/19 at 08:00 Ceftriaxone Sodium 50 ml @ 100 mls/hr DAILY IVPB Last administered on 01/23/19 09:06; Admin Dose 100 MLS/HR; Start 01/23/19 at 09:00 Atorvastatin Calcium (Lipitor) 10 mg DAILY@21 PO ; Start 01/23/19 at 21:00 Diagnostic Test (Pha) (Accu-Chek) 1 ea AC MEALS AND BEDTIME XX Last administered on 01/23/19at 12:35; Admin Dose 1 EA; Start 01/23/19 at 07:00 MARTIN ASTUDILLO MD Jan 23, 2019 13:50
[2019-01-23] MEDS ORDERED: GLUCOSE GEL 15 GRAM TUBE PO PRN ×2 (14:00)
[2019-01-23] MEDS ORDERED: GLUCOSE GEL 15 GRAM TUBE BUCCAL PRN (14:00)
[2019-01-23] MEDS ORDERED: DEXTROSE 50% 50 ML SYRINGE IV PRN ×2 (14:00)
[2019-01-23] MEDS ORDERED: GLUCAGON 1 MG INJ IM PRN (14:00)
[2019-01-23 14:04] VITALS: BP 172/83; PULSE 78; RESP 18
[2019-01-23] MEDS: INSULIN ASPART [NOVOLOG] 3 ML PEN SC SCH ×2 (18:12→21:29)
[2019-01-23] MEDS ORDERED: GUAIFENESIN 20 MG/ML 5ML CUP PO PRN (19:00)
[2019-01-23 19:50] VITALS: BP 174/83; PULSE 71; RESP 18
[2019-01-23] MEDS ORDERED: NON-FORMULARY/PATIENT OWN MED (Simvastatin* (Zocor*) 20 MG) PO SCH (21:00)
[2019-01-23] MEDS: ATORVASTATIN 10 MG TAB PO SCH (21:16)
[2019-01-24] MEDS: SOD CHLORIDE 0.9% 1,000 ML IV SCH ×4 (00:27→20:00)
[2019-01-24 01:35] VITALS: BP 170/77; PULSE 72; RESP 18
[2019-01-24] MEDS: ACCU-CHEK XX SCH ×4 (07:00→21:00)
[2019-01-24 07:34] VITALS: BP 185/91; PULSE 68; RESP 20
[2019-01-24] MEDS: LISINOPRIL 10 MG TAB PO SCH (08:12)
[2019-01-24] MEDS: ASPIRIN (EC) 81 MG TAB PO SCH (08:12)
[2019-01-24] MEDS: CEFTRIAXONE 1 GM/50 ML (PMX) 50 ML IVPB SCH (08:12)
[2019-01-24] MEDS: metFORMIN 500 MG TAB PO SCH ×2 (08:13→17:48)
[2019-01-24 08:15] VITALS: BP 146/72; PULSE 63
[2019-01-24] MEDS: HEPARIN 5,000 UNIT/1 ML VIAL SC SCH ×2 (08:20→21:37)
[2019-01-24] MEDS: ONDANSETRON 4 MG INJ IV PRN ×2 (08:48→17:54)
[2019-01-24] MEDS: glipiZIDE 5 MG TAB PO SCH (08:49)
[2019-01-24] MEDS: INSULIN ASPART [NOVOLOG] 3 ML PEN SC SCH ×4 (08:51→21:00)
--- NOTE | 2019-01-24 12:36 | PN ---
Date/Time of Note Date/Time of Note DATE: 01/24/19 TIME: 12:36 Objective Vitals Vital Signs Date Temp Pulse Resp B/P (MAP) Pulse Ox O2 O2 Flow FiO2 Time Delivery Rate 01/24/19 63 146/72 08:15 (96) 01/24/19 98.7 20 94 Room Air 07:34 Intake and Output 01/23/19 01/23/19 01/24/19 1414:59 22:59 06:59 IntakeIntake Total 300 ml 1600 ml BalanceBalance 300 ml 1600 ml Results Result Diagram: 01/24/1952201/24/19522 Medications Medications Current Medications Sodium Chloride 1,000 ml @ 100 mls/hr Q10H IV Last administered on 01/24/19 11:38; Admin Dose 100 MLS/HR; Start 01/23/19 at 00:04; Stop 01/24/19 at 23:00 IV Flush (NS 3 ml) 3 ml PER PROTOCOL IV ; Start 01/23/19 at 00:30 Ondansetron HCl (Zofran Inj) 4 mg Q6H PRN IV NAUSEA/VOMITING Last administered on 01/24/19 08:48; Admin Dose 4 MG; Start 01/23/19 at 00:30 Acetaminophen (Tylenol Tab) 650 mg Q6H PRN PO .PAIN 1-3 OR TEMP; Start 01/23/19 at 00:30 Heparin Sodium (Porcine) (Heparin (5000 Units/1ml)) 5,000 unit Q12 SC Last administered on 01/24/19 08:20; Admin Dose 5,000 UNIT; Start 01/23/19 at 09:00 Albuterol/ Ipratropium (Duoneb) 3 ml Q2H RESP THERAPY PRN HHN SHORTNESS OF BREATH; Start 01/23/19 at 00:30 Aspirin (Halfprin) 81 mg DAILY PO Last administered on 01/24/19 08:12; Admin Dose 81 MG; Start 01/23/19 at 09:00 Metformin HCl (Glucophage) 1,000 mg WITH BREAKFAST DINNE PO Last administered on 01/24/19 08:13; Admin Dose 1,000 MG; Start 01/23/19 at 08:00 Atorvastatin Calcium (Lipitor) 10 mg DAILY@21 PO Last administered on 01/23/19 21:16; Admin Dose 10 MG; Start 01/23/19 at 21:00 Diagnostic Test (Pha) (Accu-Chek) 1 ea AC MEALS AND BEDTIME XX Last administered on 01/23/19at 21:29; Admin Dose 1 EA; Start 01/23/19 at 07:00 Lisinopril (Zestril) 10 mg DAILY PO Last administered on 01/24/19at 08:12; Admin Dose 10 MG; Start 01/24/19 at 09:00 Insulin Aspart (Novolog Insulin Pen) NOVOLOG *MODERATE* ALGORITHM WITH MEALS BEDTIME SC Last administered on 01/24/19at 08:51; Admin Dose 2 UNIT; Start 01/23/19 at 18:00 Glipizide (Glucotrol) 5 mg AC BREAKFAST PO Last administered on 01/24/19at 08:49; Admin Dose 5 MG; Start 01/24/19 at 07:00 Miscellaneous Information 1 ea NOTE XX ; Start 01/23/19 at 14:00 Glucose (Glutose) 15 gm Q15M PRN PO DECREASED GLUCOSE; Start 01/23/19 at 14:00 Glucose (Glutose) 22.5 gm Q15M PRN PO DECREASED GLUCOSE; Start 01/23/19 at 14:00 Dextrose (D50w Syringe) 25 ml Q15M PRN IV DECREASED GLUCOSE; Start 01/23/19 at 14:00 Dextrose (D50w Syringe) 50 ml Q15M PRN IV DECREASED GLUCOSE; Start 01/23/19 at 14:00 Glucagon (Glucagen) 1 mg Q15M PRN IM DECREASED GLUCOSE; Start 01/23/19 at 14:00 Glucose (Glutose) 15 gm Q15M PRN BUCCAL DECREASED GLUCOSE; Start 01/23/19 at 14:00 Guaifenesin (Robitussin Liquid Cup) 100 mg Q4H PRN PO COUGH Last administered on 01/23/19at 19:00; Admin Dose 100 MG; Start 01/23/19 at 19:00 Piperacillin Sod/ Tazobactam Sod 100 ml @ 200 mls/hr Q6 IVPB ; Start 01/24/19 at 12:30 VTE Prophylaxis Risk score (from Ns)>0 risk: 3 SCD applied (from Ns): Yes Lines/Catheters IV Catheter Type: Preciado in Place: No Assessment/Plan Hospital Course Subjective No acute complaints Objective Physical exam General: Patient is laying in bed and answers questions appropriately Mentation: Patient is alert and oriented 4, Head: Normocephalic atraumatic Eyes: EOMI, pupils reactive to light Neck: Supple, nontender, midline Respiratory: Clear to auscultation bilaterally Cardiovascular: regular rate, no obvious murmurs Gastrointestinal: non-tender to palpation, bowel sounds heard. Neurological: Moves all extremities spontaneously Skin: No new skin lesions Assessment and plan Sepsis -Cultures -IV antibiotic Bacteremia -IV antibiotic -Await sensitivities UTI -IV antibiotic, await sensitivities Hypertension -Continue meds Diabetes mellitus -Insulin Dyslipidemia -On Lipitor Disposition -Await final sensitivities of bacteremia before discharge. DANE GUEVARA Jan 24, 2019 12:36
[2019-01-24] MEDS: PIPER-TAZO 3.375 GM IV (PMX) 100 ML IVPB SCH ×3 (13:26→23:39)
[2019-01-24 15:22] VITALS: BP 154/90; PULSE 62; RESP 17
[2019-01-24 20:07] VITALS: BP 192/91; PULSE 65; RESP 18
[2019-01-24] MEDS: ATORVASTATIN 10 MG TAB PO SCH (21:33)
[2019-01-24 22:53] VITALS: BP 185/86; PULSE 64
[2019-01-24] MEDS ORDERED: hydrALAzine 20 MG INJ IV ONE (23:00)
[2019-01-25 01:23] VITALS: BP 139/68; PULSE 74; RESP 17
[2019-01-25] MEDS: PIPER-TAZO 3.375 GM IV (PMX) 100 ML IVPB SCH ×4 (06:07→23:25)
[2019-01-25] MEDS: ACCU-CHEK XX SCH ×4 (07:00→20:30)
[2019-01-25 07:25] VITALS: BP 173/84; PULSE 66; RESP 16
[2019-01-25] MEDS: INSULIN ASPART [NOVOLOG] 3 ML PEN SC SCH ×4 (08:32→20:35)
[2019-01-25] MEDS: LISINOPRIL 10 MG TAB PO SCH (09:01)
[2019-01-25] MEDS: ASPIRIN (EC) 81 MG TAB PO SCH (09:01)
[2019-01-25] MEDS: HEPARIN 5,000 UNIT/1 ML VIAL SC SCH ×2 (09:02→20:34)
[2019-01-25] MEDS: metFORMIN 500 MG TAB PO SCH ×2 (09:05→17:34)
--- NOTE | 2019-01-25 12:42 | PN ---
Date/Time of Note Date/Time of Note DATE: 01/25/19 TIME: 12:42 Objective Vitals Vital Signs Date Temp Pulse Resp B/P (MAP) Pulse Ox O2 O2 Flow FiO2 Time Delivery Rate 01/25/19 98.7 66 16 173/84 97 07:25 (113) 01/24/19 Room Air 15:22 Intake and Output 01/24/19 01/24/19 01/25/19 1515:00 23:00 07:00 IntakeIntake Total 890 ml 1120 ml 200 ml BalanceBalance 890 ml 1120 ml 200 ml Results Result Diagram: 01/25/19 0551 01/25/19 0551 Medications Medications Current Medications IV Flush (NS 3 ml) 3 ml PER PROTOCOL IV ; Start 01/23/19 at 00:30 Ondansetron HCl (Zofran Inj) 4 mg Q6H PRN IV NAUSEA/VOMITING Last administered on 01/24/19at 17:54; Admin Dose 4 MG; Start 01/23/19 at 00:30 Acetaminophen (Tylenol Tab) 650 mg Q6H PRN PO .PAIN 1-3 OR TEMP; Start 01/23/19 at 00:30 Heparin Sodium (Porcine) (Heparin (5000 Units/1ml)) 5,000 unit Q12 SC Last administered on 01/25/19 09:02; Admin Dose 5,000 UNIT; Start 01/23/19 at 09:00 Albuterol/ Ipratropium (Duoneb) 3 ml Q2H RESP THERAPY PRN HHN SHORTNESS OF BREATH; Start 01/23/19 at 00:30 Aspirin (Halfprin) 81 mg DAILY PO Last administered on 01/25/19 09:01; Admin Dose 81 MG; Start 01/23/19 at 09:00 Metformin HCl (Glucophage) 1,000 mg WITH BREAKFAST DINNE PO Last administered on 01/25/19 09:05; Admin Dose 1,000 MG; Start 01/23/19 at 08:00 Atorvastatin Calcium (Lipitor) 10 mg DAILY@21 PO Last administered on 01/24/19 21:33; Admin Dose 10 MG; Start 01/23/19 at 21:00 Diagnostic Test (Pha) (Accu-Chek) 1 ea AC MEALS AND BEDTIME XX Last ad ministered on 3/15/19at 21:29; Admin Dose 1 EA; Start 01/23/19 at 07:00 Lisinopril (Zestril) 10 mg DAILY PO Last administered on 01/25/19at 09:01; Admin Dose 10 MG; Start 01/24/19 at 09:00 Insulin Aspart (Novolog Insulin Pen) NOVOLOG *MODERATE* ALGORITHM WITH MEALS BEDTIME SC Last administered on 01/25/19at 08:32; Admin Dose 2 UNIT; Start 01/23/19 at 18:00 Glipizide (Glucotrol) 5 mg AC BREAKFAST PO Last administered on 01/24/19at 08:49; Admin Dose 5 MG; Start 01/24/19 at 07:00 Miscellaneous Information 1 ea NOTE XX ; Start 01/23/19 at 14:00 Glucose (Glutose) 15 gm Q15M PRN PO DECREASED GLUCOSE; Start 01/23/19 at 14:00 Glucose (Glutose) 22.5 gm Q15M PRN PO DECREASED GLUCOSE; Start 01/23/19 at 14:00 Dextrose (D50w Syringe) 25 ml Q15M PRN IV DECREASED GLUCOSE; Start 01/23/19 at 14:00 Dextrose (D50w Syringe) 50 ml Q15M PRN IV DECREASED GLUCOSE; Start 01/23/19 at 14:00 Glucagon (Glucagen) 1 mg Q15M PRN IM DECREASED GLUCOSE; Start 01/23/19 at 14:00 Glucose (Glutose) 15 gm Q15M PRN BUCCAL DECREASED GLUCOSE; Start 01/23/19 at 14:00 Guaifenesin (Robitussin Liquid Cup) 100 mg Q4H PRN PO COUGH Last administered on 01/23/19at 19:00; Admin Dose 100 MG; Start 01/23/19 at 19:00 Piperacillin Sod/ Tazobactam Sod 100 ml @ 200 mls/hr Q6 IVPB Last administered on 01/25/19at 06:07; Admin Dose 200 MLS/HR; Start 01/24/19 at 12:30 VTE Prophylaxis Risk score (from Nsg)>0 risk: 2 SCD applied (from Nsg): Yes Lines/Catheters IV Catheter Type: Preciado in Place: No Assessment/Plan Hospital Course Subjective No acute complaints Objective Physical exam General: Patient is laying in bed and answers questions appropriately Mentation: Patient is alert and oriented 4, Head: Normocephalic atraumatic Eyes: EOMI, pupils reactive to light Neck: Supple, nontender, midline Respiratory: Clear to auscultation bilaterally Cardiovascular: regular rate, no obvious murmurs Gastrointestinal: non-tender to palpation, bowel sounds heard. Neurological: Moves all extremities spontaneously Skin: No new skin lesions Assessment and plan Sepsis -Cultures -IV antibiotic Bacteremia -IV antibiotic -Await sensitivities UTI -IV antibiotic, await sensitivities Hypertension -Continue meds Diabetes mellitus -Insulin Dyslipidemia -On Lipitor Disposition -await negative blood cultures before DC DANE GUEVARA Jan 25, 2019 12:42
[2019-01-25] MEDS: glipiZIDE 5 MG TAB PO SCH (12:44)
[2019-01-25 14:12] VITALS: BP 182/89; PULSE 59; RESP 16
[2019-01-25] MEDS: hydrALAzine 20 MG INJ IV PRN (15:41)
[2019-01-25 18:13] VITALS: BP 167/76; PULSE 71
[2019-01-25] MEDS: ATORVASTATIN 10 MG TAB PO SCH (20:30)
[2019-01-25 20:36] VITALS: BP 141/74; PULSE 70; RESP 16
[2019-01-26 01:20] VITALS: BP 175/78; PULSE 69; RESP 16
[2019-01-26] MEDS: ONDANSETRON 4 MG INJ IV PRN ×3 (01:23→17:53)
[2019-01-26] MEDS: hydrALAzine 20 MG INJ IV PRN ×3 (01:25→19:53)
[2019-01-26] MEDS ORDERED: LOPERAMIDE 2 MG CAP PO ONE (02:00)
[2019-01-26 02:25] VITALS: BP 139/69; PULSE 70
[2019-01-26] MEDS: PIPER-TAZO 3.375 GM IV (PMX) 100 ML IVPB SCH ×3 (05:44→17:45)
[2019-01-26] MEDS ORDERED: LOPERAMIDE 2 MG CAP PO PRN (06:00)
[2019-01-26] MEDS: ACCU-CHEK XX SCH ×4 (07:00→21:00)
[2019-01-26] MEDS: INSULIN ASPART [NOVOLOG] 3 ML PEN SC SCH ×4 (08:00→20:38)
[2019-01-26] MEDS: LISINOPRIL 10 MG TAB PO SCH (08:25)
[2019-01-26] MEDS: ASPIRIN (EC) 81 MG TAB PO SCH (08:26)
[2019-01-26] MEDS: glipiZIDE 5 MG TAB PO SCH (08:26)
[2019-01-26] MEDS: metFORMIN 500 MG TAB PO SCH ×2 (08:28→17:50)
[2019-01-26] MEDS: HEPARIN 5,000 UNIT/1 ML VIAL SC SCH ×2 (08:31→20:36)
[2019-01-26] MEDS ORDERED: POTASSIUM PHOSPHATE 30 MM in SOD CHLORIDE 0.9% 250 ML IVPB ONE (11:00)
--- NOTE | 2019-01-26 13:38 | PN ---
Date/Time of Note Date/Time of Note DATE: 01/26/19 TIME: 13:30 Assessment/Plan VTE Prophylaxis Risk score (from Ns)>0 risk: 4 SCD applied (from Ns): Yes Pharmacological prophylaxis: heparin Lines/Catheters IV Catheter Type (from Nrsg): Peripheral IV Urinary Cath still in place: No Assessment/Plan Assessment/Plan 1. Sepsis secondary to UTI and bacteremia - WBC normalized and remains afebrile - Continue IV antibiotics. Repeat blood cultures noted 2. Bacteremia - Blood culture results noted. Will transition to PO antibiotics 3. UTI - Sensitivities noted - IV antibiotics on board and will transition to PO. Continue monitoring for improvement 4. Hypertension - Continue meds 5. Diabetes mellitus - Insulin 6. Dyslipidemia - On Lipitor 7. Disposition - Patient with nausea this am - Will transition to PO antibiotics - when tolerating PO intake without any issues, will d/c home Result Diagram: 01/26/19 0505 01/26/19 0505 Results 24hrs Laboratory Tests Test 01/25/19 17:31 01/25/19 20:31 01/26/19 05:05 01/26/19 08:24 Bedside Glucose 136 108 139 White Blood Count 10.0 Red Blood Count 3.31 L Hemoglobin 10.0 L Hematocrit 30.0 L Mean Corpuscular 90.6 Volume Mean Corpuscular 30.2 Hemoglobin Mean Corpuscular 33.3 Hemoglobin Concent Red Cell 12.5 Distribution Width Platelet Count 244 Mean Platelet Volume 10.9 H Immature 1.300 H Granulocytes % Neutrophils % 65.6 Lymphocytes % 24.9 Monocytes % 7.8 Eosinophils % 0.1 Basophils % 0.3 Nucleated Red Blood 0.0 Cells % Immature 0.130 H Granulocytes # Neutrophils # 6.6 Lymphocytes # 2.5 Monocytes # 0.8 Eosinophils # 0.0 Basophils # 0.0 Nucleated Red Blood 0.0 Cells # Sodium Level 139 Potassium Level 3.3 L Chloride Level 105 Carbon Dioxide Level 23 Anion Gap 11 Blood Urea Nitrogen 14 Creatinine 0.89 Est Glomerular > 60 Filtrat Rate mL/min Glucose Level 133 Calcium Level 8.4 Phosphorus Level 2.1 L Magnesium Level 1.9 Test 01/26/19 12:43 Bedside Glucose 126 Subjective 24 Hr Interval Summary Free Text/Dictation Patient complaining of nausea this am with relief after Zofran. Per nursing, patient was experiencing diarrhea that has subsided. Patient also with diminished appetite. Exam/Review of Systems Exam Vitals Vital Signs Date Temp Pulse Resp B/P (MAP) Pulse Ox O2 O2 Flow FiO2 Time Delivery Rate 01/26/19 70 139/69 02:25 (92) 01/26/19 98.2 16 95 01:20 01/24/19 Room Air 15:22 Intake and Output 01/25/19 01/25/19 01/26/19 1515:00 23:00 07:00 IntakeIntake Total 780 ml 540 ml 200 ml OutputOutput Total 600 ml BalanceBalance 180 ml 540 ml 200 ml Exam General: Patient is laying in bed and answers questions appropriately. mild distress secondary to nausea Neck: Supple, nontender, midline Respiratory: Clear to auscultation bilaterally. no wheezing or rhonchi Cardiovascular: regular rate and rhythm, no obvious murmurs Gastrointestinal: soft, non-tender to palpation, bowel sounds heard. Neurological: Moves all extremities spontaneously Skin: No new skin lesions Results Results 24hrs Laboratory Tests Test 01/25/19 17:31 01/25/19 20:31 01/26/19 05:05 01/26/19 08:24 Bedside Glucose 136 108 139 White Blood Count 10.0 Red Blood Count 3.31 L Hemoglobin 10.0 L Hematocrit 30.0 L Mean Corpuscular 90.6 Volume Mean Corpuscular 30.2 Hemoglobin Mean Corpuscular 33.3 Hemoglobin Concent Red Cell 12.5 Distribution Width Platelet Count 244 Mean Platelet Volume 10.9 H Immature 1.300 H Granulocytes % Neutrophils % 65.6 Lymphocytes % 24.9 Monocytes % 7.8 Eosinophils % 0.1 Basophils % 0.3 Nucleated Red Blood 0.0 Cells % Immature 0.130 H Granulocytes # Neutrophils # 6.6 Lymphocytes # 2.5 Monocytes # 0.8 Eosinophils # 0.0 Basophils # 0.0 Nucleated Red Blood 0.0 Cells # Sodium Level 139 Potassium Level 3.3 L Chloride Level 105 Carbon Dioxide Level 23 Anion Gap 11 Blood Urea Nitrogen 14 Creatinine 0.89 Est Glomerular > 60 Filtrat Rate mL/min Glucose Level 133 Calcium Level 8.4 Phosphorus Level 2.1 L Magnesium Level 1.9 Test 01/26/19 12:43 Bedside Glucose 126 Medications Medication Current Medications IV Flush (NS 3 ml) 3 ml PER PROTOCOL IV ; Start 01/23/19 at 00:30 Ondansetron HCl (Zofran Inj) 4 mg Q6H PRN IV NAUSEA/VOMITING Last administered on 01/26/19 08:35; Admin Dose 4 MG; Start 01/23/19 at 00:30 Acetaminophen (Tylenol Tab) 650 mg Q6H PRN PO .PAIN 1-3 OR TEMP; Start 01/23/19 at 00:30 Heparin Sodium (Porcine) (Heparin (5000 Units/1ml)) 5,000 unit Q12 SC Last administered on 01/26/19 08:31; Admin Dose 5,000 UNIT; Start 01/23/19 at 09:00 Albuterol/ Ipratropium (Duoneb) 3 ml Q2H RESP THERAPY PRN HHN SHORTNESS OF BREATH; Start 01/23/19 at 00:30 Aspirin (Halfprin) 81 mg DAILY PO Last administered on 01/26/19 08:26; Admin Dose 81 MG; Start 01/23/19 at 09:00 Metformin HCl (Glucophage) 1,000 mg WITH BREAKFAST DINNE PO Last administered on 01/26/19 08:28; Admin Dose 1,000 MG; Start 01/23/19 at 08:00 Atorvastatin Calcium (Lipitor) 10 mg DAILY@21 PO Last administered on 01/25/19 20:30; Admin Dose 10 MG; Start 01/23/19 at 21:00 Diagnostic Test (Pha) (Accu-Chek) 1 ea AC MEALS AND BEDTIME XX Last administered on 01/25/19 20:30; Admin Dose 1 EA; Start 01/23/19 at 07:00 Lisinopril (Zestril) 10 mg DAILY PO Last administered on 01/26/19 08:25; Admin Dose 10 MG; Start 01/24/19 at 09:00 Insulin Aspart (Novolog Insulin Pen) NOVOLOG *MODERATE* ALGORITHM WITH MEALS BEDTIME SC Last administered on 01/25/19 12:43; Admin Dose 4 UNIT; Start 01/23/19 at 18:00 Glipizide (Glucotrol) 5 mg AC BREAKFAST PO Last administered on 01/26/19 08:26; Admin Dose 5 MG; Start 01/24/19 at 07:00 Miscellaneous Information 1 ea NOTE XX ; Start 01/23/19 at 14:00 Glucose (Glutose) 15 gm Q15M PRN PO DECREASED GLUCOSE; Start 01/23/19 at 14:00 Glucose (Glutose) 22.5 gm Q15M PRN PO DECREASED GLUCOSE; Start 01/23/19 at 14:00 Dextrose (D50w Syringe) 25 ml Q15M PRN IV DECREASED GLUCOSE; Start 01/23/19 at 14:00 Dextrose (D50w Syringe) 50 ml Q15M PRN IV DECREASED GLUCOSE; Start 01/23/19 at 14:00 Glucagon (Glucagen) 1 mg Q15M PRN IM DECREASED GLUCOSE; Start 01/23/19 at 14:00 Glucose (Glutose) 15 gm Q15M PRN BUCCAL DECREASED GLUCOSE; Start 01/23/19 at 14:00 Guaifenesin (Robitussin Liquid Cup) 100 mg Q4H PRN PO COUGH Last administered on 01/23/19at 19:00; Admin Dose 100 MG; Start 01/23/19 at 19:00 Piperacillin Sod/ Tazobactam Sod 100 ml @ 200 mls/hr Q6 IVPB Last administered on 01/26/19at 12:43; Admin Dose 200 MLS/HR; Start 01/24/19 at 12:30 Hydralazine HCl (Apresoline) 10 mg Q4H PRN IV ELEVATED BLOOD PRESSURE Last administered on 01/26/19at 01:25; Admin Dose 10 MG; Start 01/25/19 at 15:00 Loperamide HCl (Imodium Cap) 2 mg GIVE IF INDICATED PRN PO DIARRHEA; Start 01/26/19 at 06:00; Stop 01/27/19 at 06:00 Potassium Phosphate 30 mm/ Sodium Chloride 260 ml @ 65 mls/hr ONCE ONCE IVPB Last administered on 01/26/19at 11:17; Admin Dose 65 MLS/HR; Start 01/26/19 at 11:00; Stop 01/26/19 at 14:59 DELVIN PARK MD Jan 26, 2019 13:38
[2019-01-26 14:40] VITALS: BP 185/91; PULSE 69; RESP 18
[2019-01-26 16:18] VITALS: BP 159/75; PULSE 70
[2019-01-26] MEDS: LACTOBACILLUS RHAMNOSUS CAP PO SCH (17:44)
[2019-01-26 19:56] VITALS: BP 172/84; PULSE 70; RESP 16
[2019-01-26] MEDS: ATORVASTATIN 10 MG TAB PO SCH (20:33)
[2019-01-26 20:35] VITALS: BP 138/69; PULSE 73
[2019-01-27 02:00] VITALS: BP 171/84; PULSE 70; RESP 16
[2019-01-27] MEDS: hydrALAzine 20 MG INJ IV PRN ×3 (02:08→21:39)
[2019-01-27] MEDS: ACCU-CHEK XX SCH ×4 (07:00→20:31)
[2019-01-27 07:40] VITALS: BP 185/82; PULSE 73; RESP 20
[2019-01-27 07:43] VITALS: BP 158/83; PULSE 68
[2019-01-27] MEDS: INSULIN ASPART [NOVOLOG] 3 ML PEN SC SCH ×4 (08:00→20:31)
[2019-01-27] MEDS: ASPIRIN (EC) 81 MG TAB PO SCH (08:35)
[2019-01-27] MEDS: LACTOBACILLUS RHAMNOSUS CAP PO SCH ×3 (08:35→17:40)
[2019-01-27] MEDS: glipiZIDE 5 MG TAB PO SCH (08:35)
[2019-01-27] MEDS: LISINOPRIL 10 MG TAB PO SCH (08:35)
[2019-01-27] MEDS: metFORMIN 500 MG TAB PO SCH ×2 (08:39→17:43)
[2019-01-27] MEDS: HEPARIN 5,000 UNIT/1 ML VIAL SC SCH ×2 (08:39→20:31)
[2019-01-27] MEDS ORDERED: POTASSIUM CHLORIDE (SR) 20 MEQ TAB PO STA (09:02)
[2019-01-27] MEDS: CEPHALEXIN 500 MG CAP PO SCH ×2 (10:24→20:27)
[2019-01-27] MEDS ORDERED: LISINOPRIL 10 MG TAB PO ONE (10:30)
[2019-01-27] MEDS: POTASSIUM CHLORIDE 100 ML IVPB SCH ×2 (11:10→14:09)
--- NOTE | 2019-01-27 13:53 | PN ---
Date/Time of Note Date/Time of Note DATE: 01/27/19 TIME: 13:46 Assessment/Plan VTE Prophylaxis Risk score (from [facility] [place])>0 risk: 3 SCD applied (from Ns): Yes Pharmacological prophylaxis: heparin Lines/Catheters IV [facility] Type [facility]from [facility] Saline Lock Urinary Cath still in place: No Assessment/Plan Assessment/Plan 1. Sepsis secondary to UTI and bacteremia - WBC normalized and remains afebrile - repeat blood cultures noted - On PO antibiotics and monitoring vitals 2. Bacteremia - Blood culture results noted 3. UTI - Sensitivities noted - continue antibiotics 4. Hypertension - Increasing dose of Lisinopril given BP remains elevated 5. Diabetes mellitus - Insulin - A1c noted 6. Dyslipidemia - On Lipitor 7. Disposition - Still with poor PO intake. If feeling better will d/c tomorrow Result Diagram: 01/27/19 0540 01/27/19 0540 Results 24hrs Laboratory Tests Test 01/26/19 17:41 01/26/19 20:34 01/27/19 05:40 01/27/19 07:58 Bedside Glucose 82 102 102 White Blood Count 9.5 Red Blood Count 3.16 L Hemoglobin 9.5 L Hematocrit 28.8 L Mean Corpuscular 91.1 Volume Mean Corpuscular 30.1 Hemoglobin Mean Corpuscular 33.0 Hemoglobin Concent Red Cell 12.9 Distribution Width Platelet Count 270 Mean Platelet Volume 10.2 Immature 1.200 H Granulocytes % Neutrophils % 63.6 Lymphocytes % 27.2 Monocytes % 7.7 Eosinophils % 0.1 Basophils % 0.2 Nucleated Red Blood 0.0 Cells % Immature 0.110 H Granulocytes # Neutrophils # 6.1 Lymphocytes # 2.6 Monocytes # 0.7 Eosinophils # 0.0 Basophils # 0.0 Nucleated Red Blood 0.0 Cells # Sodium Level 138 Potassium Level 3.1 L Chloride Level 107 Carbon Dioxide Level 22 Anion Gap 9 Blood Urea Nitrogen 10 Creatinine 0.84 Glucose Level 95 Calcium Level 8.2 L Phosphorus Level 3.2 Magnesium Level 2.0 Albumin 3.0 L Test 01/27/19 12:21 Bedside Glucose 118 Subjective 24 Hr Interval Summary Free Text/Dictation Patient still with diminished appetite and some nausea. Denies any urinary complaints at this time. Exam/Review of Systems Exam Vitals Vital Signs Date Temp Pulse Resp B/P (MAP) Pulse Ox O2 O2 Flow FiO2 Time Delivery Rate 01/27/19 68 158/83 07:43 (108) 01/27/19 98.6 20 97 Room Air 07:40 Intake and Output 01/26/19 01/26/19 01/27/19 1515:00 23:00 07:00 IntakeIntake Total 220 ml 960 ml 120 ml OutputOutput Total 300 ml BalanceBalance 220 ml 960 ml -180 ml Exam General: Patient is laying in bed and answers questions appropriately Neck: Supple Respiratory: Clear to auscultation bilaterally. no wheezing or rhonchi Cardiovascular: regular rate and rhythm, no obvious murmurs Gastrointestinal: soft, non-tender to palpation, bowel sounds heard. Neurological: Moves all extremities spontaneously Skin: No new skin lesions Results Results 24hrs Laboratory Tests Test 01/26/19 17:41 01/26/19 20:34 01/27/19 05:40 01/27/19 07:58 Bedside Glucose 82 102 102 White Blood Count 9.5 Red Blood Count 3.16 L Hemoglobin 9.5 L Hematocrit 28.8 L Mean Corpuscular 91.1 Volume Mean Corpuscular 30.1 Hemoglobin Mean Corpuscular 33.0 Hemoglobin Concent Red Cell 12.9 Distribution Width Platelet Count 270 Mean Platelet Volume 10.2 Immature 1.200 H Granulocytes % Neutrophils % 63.6 Lymphocytes % 27.2 Monocytes % 7.7 Eosinophils % 0.1 Basophils % 0.2 Nucleated Red Blood 0.0 Cells % Immature 0.110 H Granulocytes # Neutrophils # 6.1 Lymphocytes # 2.6 Monocytes # 0.7 Eosinophils # 0.0 Basophils # 0.0 Nucleated Red Blood 0.0 Cells # Sodium Level 138 Potassium Level 3.1 L Chloride Level 107 Carbon Dioxide Level 22 Anion Gap 9 Blood Urea Nitrogen 10 Creatinine 0.84 Glucose Level 95 Calcium Level 8.2 L Phosphorus Level 3.2 Magnesium Level 2.0 Albumin 3.0 L Test 01/27/19 12:21 Bedside Glucose 118 Medications Medication Current Medications IV Flush (NS 3 ml) 3 ml PER PROTOCOL IV ; Start 01/23/19 at 00:30 Ondansetron HCl (Zofran Inj) 4 mg Q6H PRN IV NAUSEA/VOMITING Last administered on 01/26/19at 17:53; Admin Dose 4 MG; Start 01/23/19 at 00:30 Acetaminophen (Tylenol Tab) 650 mg Q6H PRN PO .PAIN 1-3 OR TEMP; Start 01/23/19 at 00:30 Heparin Sodium (Porcine) (Heparin (5000 Units/1ml)) 5,000 unit Q12 SC Last administered on 01/27/19 08:39; Admin Dose 5,000 UNIT; Start 01/23/19 at 09:00 Albuterol/ Ipratropium (Duoneb) 3 ml Q2H RESP THERAPY PRN HHN SHORTNESS OF BREATH; Start 01/23/19 at 00:30 Aspirin (Halfprin) 81 mg DAILY PO Last administered on 01/27/19 08:35; Admin Dose 81 MG; Start 01/23/19 at 09:00 Metformin HCl (Glucophage) 1,000 mg WITH BREAKFAST DINNE PO Last administered on 01/27/19 08:39; Admin Dose 1,000 MG; Start 01/23/19 at 08:00 Atorvastatin Calcium (Lipitor) 10 mg DAILY@21 PO Last administered on 01/26/19 20:33; Admin Dose 10 MG; Start 01/23/19 at 21:00 Diagnostic Test (Pha) (Accu-Chek) 1 ea AC MEALS AND BEDTIME XX Last administered on 01/26/19 21:00; Admin Dose 1 EA; Start 01/23/19 at 07:00 Insulin Aspart (Novolog Insulin Pen) NOVOLOG *MODERATE* ALGORITHM WITH MEALS BEDTIME SC Last administered on 01/25/19 12:43; Admin Dose 4 UNIT; Start 01/23/19 at 18:00 Glipizide (Glucotrol) 5 mg AC BREAKFAST PO Last administered on 01/27/19 08:35; Admin Dose 5 MG; Start 01/24/19 at 07:00 Miscellaneous Information 1 ea NOTE XX ; Start 01/23/19 at 14:00 Glucose (Glutose) 15 gm Q15M PRN PO DECREASED GLUCOSE; Start 01/23/19 at 14:00 Glucose (Glutose) 22.5 gm Q15M PRN PO DECREASED GLUCOSE; Start 01/23/19 at 14:00 Dextrose (D50w Syringe) 25 ml Q15M PRN IV DECREASED GLUCOSE; Start 01/23/19 at 14:00 Dextrose (D50w Syringe) 50 ml Q15M PRN IV DECREASED GLUCOSE; Start 01/23/19 at 14:00 Glucagon (Glucagen) 1 mg Q15M PRN IM DECREASED GLUCOSE; Start 01/23/19 at 14:00 Glucose (Glutose) 15 gm Q15M PRN BUCCAL DECREASED GLUCOSE; Start 01/23/19 at 14:00 Guaifenesin (Robitussin Liquid Cup) 100 mg Q4H PRN PO COUGH Last administered on 01/23/19 19:00; Admin Dose 100 MG; Start 01/23/19 at 19:00 Hydralazine HCl (Apresoline) 10 mg Q4H PRN IV ELEVATED BLOOD PRESSURE Last administered on 01/27/19 02:08; Admin Dose 10 MG; Start 01/25/19 at 15:00 Lactobacillus Acidophilus/ Rhamnosus (Culturelle) 1 cap WITH MEALS PO Last administered on 01/27/19at 12:56; Admin Dose 1 CAP; Start 01/26/19 at 18:00 Cephalexin (Keflex) 500 mg BID PO Last administered on 01/27/19at 10:24; Admin Dose 500 MG; Start 01/27/19 at 09:00 Potassium Chloride 100 ml @ 50 mls/hr Q2H IVPB Last administered on 01/27/19 11:10; Admin Dose 50 MLS/HR; Start 01/27/19 at 10:00; Stop 01/27/19 at 13:59 Lisinopril (Zestril) 20 mg DAILY PO ; Start 01/28/19 at 09:00 DELVIN PARK MD Jan 27, 2019 13:53
[2019-01-27 14:12] VITALS: BP 191/91; PULSE 74; RESP 20
[2019-01-27 20:08] VITALS: BP 175/82; PULSE 73; RESP 18
[2019-01-27] MEDS: AMLODIPINE 5 MG TAB PO SCH (20:27)
[2019-01-27] MEDS: ATORVASTATIN 10 MG TAB PO SCH (20:27)
[2019-01-27 22:00] VITALS: BP 139/65; PULSE 79; RESP 18
[2019-01-28 02:14] VITALS: BP 147/74; PULSE 82; RESP 18
[2019-01-28] MEDS: ACCU-CHEK XX SCH ×2 (07:00→11:30)
[2019-01-28 07:39] VITALS: BP 158/74; PULSE 66; RESP 18
[2019-01-28] MEDS: INSULIN ASPART [NOVOLOG] 3 ML PEN SC SCH ×2 (08:00→12:00)
[2019-01-28] MEDS ORDERED: LISINOPRIL 20 MG TAB PO SCH (09:00)
--- NOTE | 2019-01-28 09:06 | PN ---
Date/Time of Note Date/Time of Note DATE: 01/28/19 TIME: 09:05 Assessment/Plan VTE Prophylaxis Risk score (from Ns)>0 risk: 3 SCD applied (from Ns): No SCD contraindicated: low risk/ambulating Pharmacological prophylaxis: LMWH Lines/Catheters IV C[facility]ter Type (from [facility] Saline Lock Urinary Cath still in place: No Assessment/Plan Assessment/Plan 1. Sepsis secondary to UTI and bacteremia- resolving - Patient denies any further fevers or discomfort - appetite improving this morning - WBC normalized - repeat blood cultures noted to be negative - On PO antibiotics and tolerating 2. Bacteremia - Blood culture results noted - continue antibiotics 3. UTI - Sensitivities noted - continue antibiotics 4. Hypertension - Better controlled after Norvasc added and Lisinopril dose adjusted 5. Diabetes mellitus - Insulin - A1c noted - discussed need to follow up with PCP for monitoring of glucose and A1c 6. Dyslipidemia - On Lipitor 7. Disposition - Medically stable for discharge home Result Diagram: 01/28/19 0508 01/28/19 0507 Results 24hrs Laboratory Tests Test 01/27/19 12:21 01/27/19 17:38 01/27/19 20:30 01/28/19 05:07 Bedside Glucose 118 87 96 Sodium Level 140 Potassium Level 4.4 Chloride Level 104 Carbon Dioxide Level 24 Anion Gap 12 Blood Urea Nitrogen 9 Creatinine 0.70 Glucose Level 76 Calcium Level 8.8 Phosphorus Level 2.8 Magnesium Level 1.9 Albumin 3.0 L Test 01/28/19 05:08 01/28/19 07:49 White Blood Count 10.2 Red Blood Count 3.34 L Hemoglobin 10.0 L Hematocrit 30.7 L Mean Corpuscular 91.9 Volume Mean Corpuscular 29.9 Hemoglobin Mean Corpuscular 32.6 Hemoglobin Concent Red Cell 13.3 Distribution Width Platelet Count 325 # Mean Platelet Volume 10.1 Immature 0.800 H Granulocytes % Neutrophils % 63.1 Lymphocytes % 28.0 Monocytes % 7.7 Eosinophils % 0.3 Basophils % 0.1 Nucleated Red Blood 0.0 Cells % Immature 0.080 H Granulocytes # Neutrophils # 6.4 Lymphocytes # 2.9 Monocytes # 0.8 Eosinophils # 0.0 Basophils # 0.0 Nucleated Red Blood 0.0 Cells # Bedside Glucose 78 Subjective 24 Hr Interval Summary Free Text/Dictation Patient states she has a better appetite this am and denies any new complaints. No acute overnight events. Exam/Review of Systems Exam Vitals Vital Signs Date Temp Pulse Resp B/P (MAP) Pulse Ox O2 O2 Flow FiO2 Time Delivery Rate 01/28/19 98.4 66 18 158/74 94 Room Air 07:39 (102) Intake and Output 01/27/19 01/27/19 01/28/19 1515:00 23:00 07:00 IntakeIntake Total 700 ml 340 ml 118 ml BalanceBalance 700 ml 340 ml 118 ml Exam General: Patient is laying in bed and answers questions appropriately Neck: Supple Respiratory: Clear to auscultation bilaterally. no wheezing or rhonchi Cardiovascular: regular rate and rhythm, no obvious murmurs Gastrointestinal: soft, non-tender to palpation, bowel sounds heard. Neurological: Moves all extremities spontaneously Skin: No new skin lesions Results Results 24hrs Laboratory Tests Test 01/27/19 12:21 01/27/19 17:38 01/27/19 20:30 01/28/19 05:07 Bedside Glucose 118 87 96 Sodium Level 140 Potassium Level 4.4 Chloride Level 104 Carbon Dioxide Level 24 Anion Gap 12 Blood Urea Nitrogen 9 Creatinine 0.70 Glucose Level 76 Calcium Level 8.8 Phosphorus Level 2.8 Magnesium Level 1.9 Albumin 3.0 L Test 01/28/19 05:08 01/28/19 07:49 White Blood Count 10.2 Red Blood Count 3.34 L Hemoglobin 10.0 L Hematocrit 30.7 L Mean Corpuscular 91.9 Volume Mean Corpuscular 29.9 Hemoglobin Mean Corpuscular 32.6 Hemoglobin Concent Red Cell 13.3 Distribution Width Platelet Count 325 # Mean Platelet Volume 10.1 Immature 0.800 H Granulocytes % Neutrophils % 63.1 Lymphocytes % 28.0 Monocytes % 7.7 Eosinophils % 0.3 Basophils % 0.1 Nucleated Red Blood 0.0 Cells % Immature 0.080 H Granulocytes # Neutrophils # 6.4 Lymphocytes # 2.9 Monocytes # 0.8 Eosinophils # 0.0 Basophils # 0.0 Nucleated Red Blood 0.0 Cells # Bedside Glucose 78 Medications Medication Current Medications IV Flush (NS 3 ml) 3 ml PER PROTOCOL IV ; Start 01/23/19 at 00:30 Ondansetron HCl (Zofran Inj) 4 mg Q6H PRN IV NAUSEA/VOMITING Last administered on 01/26/19 17:53; Admin Dose 4 MG; Start 01/23/19 at 00:30 Acetaminophen (Tylenol Tab) 650 mg Q6H PRN PO .PAIN 1-3 OR TEMP; Start 01/23/19 at 00:30 Heparin Sodium (Porcine) (Heparin (5000 Units/1ml)) 5,000 unit Q12 SC Last administered on 01/27/19 20:31; Admin Dose 5,000 UNIT; Start 01/23/19 at 09:00 Albuterol/ Ipratropium (Duoneb) 3 ml Q2H RESP THERAPY PRN HHN SHORTNESS OF BREATH; Start 01/23/19 at 00:30 Aspirin (Halfprin) 81 mg DAILY PO Last administered on 01/27/19 08:35; Admin Dose 81 MG; Start 01/23/19 at 09:00 Metformin HCl (Glucophage) 1,000 mg WITH BREAKFAST DINNE PO Last administered on 01/27/19 17:43; Admin Dose 1,000 MG; Start 01/23/19 at 08:00 Atorvastatin Calcium (Lipitor) 10 mg DAILY@21 PO Last administered on 01/27/19 20:27; Admin Dose 10 MG; Start 01/23/19 at 21:00 Diagnostic Test (Pha) (Accu-Chek) 1 ea AC MEALS AND BEDTIME XX Last administered on 01/27/19 20:31; Admin Dose 1 EA; Start 01/23/19 at 07:00 Insulin Aspart (Novolog Insulin Pen) NOVOLOG *MODERATE* ALGORITHM WITH MEALS BEDTIME SC Last administered on 01/25/19 12:43; Admin Dose 4 UNIT; Start 01/23/19 at 18:00 Glipizide (Glucotrol) 5 mg AC BREAKFAST PO Last administered on 01/27/19 08:35; Admin Dose 5 MG; Start 01/24/19 at 07:00 Miscellaneous Information 1 ea NOTE XX ; Start 01/23/19 at 14:00 Glucose (Glutose) 15 gm Q15M PRN PO DECREASED GLUCOSE; Start 01/23/19 at 14:00 Glucose (Glutose) 22.5 gm Q15M PRN PO DECREASED GLUCOSE; Start 01/23/19 at 14: 00 Dextrose (D50w Syringe) 25 ml Q15M PRN IV DECREASED GLUCOSE; Start 01/23/19 at 14:00 Dextrose (D50w Syringe) 50 ml Q15M PRN IV DECREASED GLUCOSE; Start 01/23/19 at 14:00 Glucagon (Glucagen) 1 mg Q15M PRN IM DECREASED GLUCOSE; Start 01/23/19 at 14:00 Glucose (Glutose) 15 gm Q15M PRN BUCCAL DECREASED GLUCOSE; Start 01/23/19 at 14:00 Guaifenesin (Robitussin Liquid Cup) 100 mg Q4H PRN PO COUGH Last administered on 01/23/19at 19:00; Admin Dose 100 MG; Start 01/23/19 at 19:00 Hydralazine HCl (Apresoline) 10 mg Q4H PRN IV ELEVATED BLOOD PRESSURE Last administered on 01/27/19at 21:39; Admin Dose 10 MG; Start 01/25/19 at 15:00 Lactobacillus Acidophilus/ Rhamnosus (Culturelle) 1 cap WITH MEALS PO Last administered on 01/27/19at 17:40; Admin Dose 1 CAP; Start 01/26/19 at 18:00 Cephalexin (Keflex) 500 mg BID PO Last administered on 01/27/19 20:27; Admin Dose 500 MG; Start 01/27/19 at 09:00 Lisinopril (Zestril) 20 mg DAILY PO ; Start 01/28/19 at 09:00 Amlodipine Besylate (Norvasc) 5 mg BID PO Last administered on 01/27/19 20:27; Admin Dose 5 MG; Start 01/27/19 at 21:00 DELVIN PARK MD Jan 28, 2019 09:05
[2019-01-28] MEDS: LACTOBACILLUS RHAMNOSUS CAP PO SCH ×2 (09:14→13:02)
[2019-01-28] MEDS: CEPHALEXIN 500 MG CAP PO SCH (09:14)
[2019-01-28] MEDS: AMLODIPINE 5 MG TAB PO SCH (09:14)
[2019-01-28] MEDS: glipiZIDE 5 MG TAB PO SCH (09:15)
[2019-01-28] MEDS: metFORMIN 500 MG TAB PO SCH (09:15)
[2019-01-28] MEDS: ASPIRIN (EC) 81 MG TAB PO SCH (09:15)
[2019-01-28] MEDS: HEPARIN 5,000 UNIT/1 ML VIAL SC SCH (09:20)
[2019-01-28] MEDS ORDERED: LISI-471 PO (12:05)
[2019-01-28] MEDS ORDERED: AMLO-145 PO (12:05)
[2019-01-28] MEDS ORDERED: LACT1CAP28 PO (12:05)
[2019-01-28] MEDS ORDERED: CEPH500C PO (12:05)
[2019-01-28] MEDS ORDERED: ONDA4TAB14 PO (12:06)
--- NOTE | 2019-01-28 12:09 | PDOCDIS ---
Discharge Instructions DIAGNOSIS Discharge Diagnosis 1. Sepsis secondary to UTI and bacteremia- resolved 2. Bacteremia- resolved 3. UTI- improved 4. Hypertension 5. Diabetes mellitus 6. Dyslipidemia CONDITION [id number] Patient Condition: [id number] Stable HOME CARE INSTRUCTIONS: [id number] Diet Instructions: [id number] Low Fat /Cholesterol [id number] Special Diet: [id number] low sugar, low carb diet ACTIVITY: [id number] Activity Restrictions: [id number] No Restrictions FOLLOW UP/APPOINTMENTS Follow-up Plan 1. Follow up with your primary care physician in 1-2 weeks 2. You will need to continue on antibiotics twice a day until 02/05/19. Your next dose is tonight (01/28) at dinner time 3. If you experience any nausea, take Zofran for relief 4. Your blood pressure was running high and you were started on a new medications, Norvasc 5mg twice a day and your Lisinopril dose was increased to 20mg as well. Continue monitoring your blood pressure at home and with your PCP 5. You will need to continue on diabetic medications as prescribed. It is important to avoid processed sugars and foods high in carbs and white flour for better sugar control 6. If experiencing any concerning symptoms, please go to your nearest emergency department DELVIN PARK MD Jan 28, 2019 12:09
--- NOTE | 2019-01-28 16:50 | DS ---
Date/Time of Note Date/Time of Note DATE: 01/28/19 TIME: 16:47 Discharge Summary Admission/Discharge Info Admit Date/Time Jan 22, 2019 at 23:58 Discharge Date/Time Jan 28, 2019 at 15:10 Discharge Diagnosis 1. Sepsis secondary to UTI and bacteremia- resolved 2. Bacteremia- resolved 3. UTI- improved 4. Hypertension 5. Diabetes mellitus 6. Dyslipidemia Patient Condition: Stable Procedures PROCEDURE: XR Chest. CLINICAL INDICATION: Sepsis TECHNIQUE: Frontal chest x-ray was obtained. COMPARISON: Chest x-ray December 13, 2014 FINDINGS: The heart is enlarged. Mediastinum is not widened. No hilar masses seen. Lungs are clear of any infiltrates. There is no effusion or pneumothorax. The osseous structures appear normal. IMPRESSION: Cardiomegaly. No pneumonia or failure. .Trey Murray MD, MD Date Time Electronically viewed and signed by .Trey Murray MD, MD on 01/22/2019 23:01 Hx of Present Illness This is a 63-year-old female with a history of hypertension, diabetes, dyslipidemia, large left upper back abscess status post I&D in 2014. Patient presents the ER complaining of abdominal pain, nausea/vomiting and diarrhea. Abdominal pain is mostly left-sided. Diarrhea is not bloody. Emesis described as nonbilious and nonbloody. Mom presents the ER, she was febrile temperature of 101.8. WBC 24,000. UA consistent with UTI. Hospital Course Patient was admitted for treatment of UTI sepsis and started on IV antibiotics and cultures were obtained. She was continued on supportive treatment and blood cultures as well as urine cultures were growing Ecoli. Patient was transitioned to PO antibiotics with improvement in overall clinical condition. Patients nausea and vomiting improved as well and no longer was experiencing abdominal discomfort. Patient was hypertensive during hospital stay and BP medications were adjusted. Patients presenting symptoms improved significantly and on day of discharge, vitals and physical exam were stable. Patient was discharged home in good condition Home Meds Active Scripts Ondansetron (Ondansetron Odt) 4 Mg Tab.rapdis, 4 MG PO Q6H PRN for NAUSEA AND/OR VOMITING for 7 Days, #20 TAB Prov:DELVIN PARK MD 01/28/19 Lactobacillus Rhamnosus GG (Culturelle) 1 Each Capsule, 1 CAP PO WITH MEALS for 30 Days, #90 CAP Prov:DELVIN PARK MD 01/28/19 Lisinopril* (Lisinopril*) 20 Mg Tablet, 20 MG PO DAILY for 30 Days, #30 TAB 6 Refills Prov:DELVIN PARK MD 01/28/19 Amlodipine Besylate* (Amlodipine Besylate*) 5 Mg Tablet, 5 MG PO BID for 30 Days, #60 TAB Prov:DELVIN PARK MD 01/28/19 Cephalexin* (Cephalexin*) 500 Mg Capsule, 500 MG PO BID for 9 Days, #17 CAP next dose 01/28/19 with dinner Prov:DELVIN PARK MD 01/28/19 Reported Medications Simvastatin* (Zocor*) 20 Mg Tablet, 20 MG PO QHS, #30 TAB 01/22/19 Aspirin* (Aspirin* EC) 81 Mg Tablet.dr, 81 MG PO DAILY, TAB 01/22/19 Calcium Carbonate-Vitamin D3 (Calcium 600 + Vit D3) 1 Each Tablet, 1 TAB PO BID, TAB 01/22/19 Metformin Hcl* (Metformin Hcl*) 1,000 Mg Tablet, 1000 MG PO WITH BREAKFAST DINNE, #60 TAB 01/22/19 Glipizide* (Glipizide*) 5 Mg Tablet, 5 MG PO AC BREAKFAST DINNER, TAB 01/22/19 Discontinued Reported Medications Lisinopril* (Lisinopril*) 5 Mg Tablet, 5 MG PO DAILY, #30 TAB 01/22/19 Aspirin (Low Dose Aspirin) 81 Mg Tablet.dr, 81 MG PO DAILY, #30 TAB 07/03/17 Lisinopril* (Lisinopril*) 5 Mg Tablet, 5 MG PO DAILY, #30 TAB 07/03/17 Calcium Carbonate/Vitamin D3 ([place] 500+D Tablet) 1 Each Tablet, 1 EACH PO BID, TAB 07/03/17 Simvastatin* (Zocor*) 20 Mg Tablet, 20 MG PO QHS, #30 TAB 07/03/17 Glipizide* (Glipizide*) 5 Mg Tablet, 5 MG PO BID, TAB 07/03/17 Metformin Hcl* (Metformin Hcl*) 1,000 Mg Tablet, 1000 MG PO WITH BREAKFAST DINNE, #30 TAB 07/03/17 Follow-up Plan 1. Follow up with your primary care physician in 1-2 weeks 2. You will need to continue on antibiotics twice a day until 02/05/19. Your next dose is tonight (01/28) at dinner time 3. If you experience any nausea, take Zofran for relief 4. Your blood pressure was running high and you were started on a new medications, Norvasc 5mg twice a day and your Lisinopril dose was increased to 20mg as well. Continue monitoring your blood pressure at home and with your PCP 5. You will need to continue on diabetic medications as prescribed. It is important to avoid processed sugars and foods high in carbs and white flour for better sugar control 6. If experiencing any concerning symptoms, please go to your nearest emergency department Primary Care Provider [facility] Time spent on discharge: > 30 minutes Pending Labs Laboratory Tests Test 01/27/19 17:38 01/27/19 20:30 01/28/19 05:07 01/28/19 05:08 Bedside 87 96 Glucose mg/dL (70-220) mg/dL (70-220) Sodium Level 140 mmol/L (135-14 4) Potassium 4.4 Level mmol/L (3.5-5. 1) Chloride Level 104 mmol/L (97-110 ) Carbon Dioxide 24 Level mmol/L (21-31) Anion Gap 12 (5-13) Blood Urea 9 mg/dl (7-20) Nitrogen Creatinine 0.70 mg/dl (0.44-1. 00) Glucose Level 76 mg/dl (70-220) Calcium Level 8.8 mg/dl (8.4-10. 2) Phosphorus 2.8 Level mg/dl (2.5-4.9 ) Magnesium 1.9 Level mg/dl (1.7-2.5 ) Albumin 3.0 g/dl (3.3-4.9) White Blood 10.2 Count 10^3/ul (4.8-1 0.8) Red Blood 3.34 Count 10^6/ul (4.20- 5.40) Hemoglobin 10.0 g/dl (12.0-16. 0) Hematocrit 30.7 % (37.0-47.0) Mean 91.9 Corpuscular fl (82.0-101.0 Volume ) Mean 29.9 Corpuscular pg (29.0-33.0) Hemoglobin Mean 32.6 Corpuscular g/dl (32.0-37. Hemoglobin Conc 0) ent Red Cell 13.3 Distribution % (11.5-14.5) Width Platelet Count 325 10^3/UL (140-4 15) Mean Platelet 10.1 Volume fl (7.4-10.4) Immature 0.800 Granulocytes % % (0.001-0.429 ) Neutrophils % 63.1 % (39.0-77.0) Lymphocytes % 28.0 % (15.0-51.0) Monocytes % 7.7 % (0.0-11.0) Eosinophils % 0.3 % (0.0-7.0) Basophils % 0.1 % (0.0-2.0) Nucleated Red 0.0 Blood Cells % /100WBC (0.0-0 .0) Immature 0.080 Granulocytes # 10^3/ul (0.0-0 .031) Neutrophils # 6.4 10^3/ul (1.6-7 .5) Lymphocytes # 2.9 10^3/ul (0.8-2 .9) Monocytes # 0.8 10^3/ul (0.3-0 .9) Eosinophils # 0.0 10^3/ul (0.0-0 .5) Basophils # 0.0 10^3/ul (0.0-0 .1) Nucleated Red 0.0 Blood Cells # 10^3/ul (0.0-0 .0) Test 01/28/19 07:49 01/28/19 12:36 Bedside 78 80 Glucose mg/dL (70-220) mg/dL (70-220) DELVIN PARK MD Jan 28, 2019 16:50
== END 2019-01-28 15:10 | disposition home or self-care (01) | DRG 872 ==
LOC: E/R 17:11 → 2NE 23:58
PROVIDERS: ADMIT Internal Medicine; ATTEND Internal Medicine
DX: A41.9 Sepsis, unspecified organism (principal); N39.0 Urinary tract infection, site not specified; E11.65 Type 2 diabetes mellitus with hyperglycemia; I10 Essential (primary) hypertension; E78.5 Hyperlipidemia, unspecified; I16.0 Hypertensive urgency; B96.20 Unspecified Escherichia coli [E. coli] as the cause of diseases classified elsewhere; E66.9 Obesity, unspecified; Z68.23 Body mass index [BMI] 23.0-23.9, adult; Z79.84 Long term (current) use of oral hypoglycemic drugs; Z79.82 Long term (current) use of aspirin; Z90.710 Acquired absence of both cervix and uterus
CPT/HCPCS: 36415; 71045; 80048; 80053; 80061; 80069; 81001; 82962; 83036; 83605; 83690; 83735; 84100; 84484; 85025; 85610; 85730; 87040; 87045; 87086; 93005; 96361; 96365; 96375; J0360; J0696; J1644; J1815; J2405; J2543; J3480; J7030; J7050; J7120